=== PATIENT | female | born 1950 | race Caucasian/White ===

== ENCOUNTER 2020-10-05 13:19 | Emergency (ER) | payer MEDICARE ==
[~2020-10-05] VITALS: Ht 160 cm; Wt 113.4 kg
--- NOTE | 2020-10-05 13:33 | NUR ---
ARRIVAL PT ARRIVED TO ED WITH C/O UPPER BACK PAIN X4 DAYS. PT UNSURE OF ANY INJURY AND STATES THAT SHE MAY HAVE PULLED SOMETHING WHILE CLIMBING INTO THE [place]. BEDSIDE MONITORS APPLIED. VITAL SIGNS STABLE. BED IN LOW LOCKED POSITION.
[2020-10-05 13:38] VITALS: BP 151/74
[2020-10-05] MEDS ORDERED: NORCO 7.5MG PO STA ×2 (13:41→13:51)
[2020-10-05] MEDS ORDERED: TORADOL IM STA ×2 (13:41→13:51)
[2020-10-05] MEDS ORDERED: LIDOCAINE 1% VIAL ONE (13:44)
[2020-10-05] MEDS ORDERED: NORCO 7.5MG PO ONE (13:45)
[2020-10-05] MEDS ORDERED: TORADOL ONE (13:45)
[2020-10-05] MEDS ORDERED: KENALOG-40 ONE (13:45)
--- NOTE | 2020-10-05 14:04 | ER.PDOC ---
General Chief Complaint: Back Pain/Injury Stated Complaint: UPPER BACK PAIN Time seen by MD: 14:00 Source: patient Exam Limitations: no limitations History of Present Illness Initial Comments ALSO L SCAPULAR AREA PAIN Timing/Duration: yesterday Severity/Quality: moderate Method of Injury: lifting Modifying Factors: improves with movement Associated Symptoms: muscle spasms Allergies: Coded Allergies: Sulfa (Sulfonamide Antibiotics) (Verified Allergy, Unknown, 10/05/20) Past Medical History Medical History: asthma, diabetes, hypertension Surgical History: cholecystectomy, hysterectomy, tonsillectomy, other Social History Alcohol Use: none Drug Use: none Reviewed Nursing Reviewed: Vital Signs, Abn. Noted Review of Systems All Other Systems: Reviewed and Negative Physical Exam General Appearance: No Apparent Distress, WD/WN HEENT: PERRL/EOMI, Normal ENT Inspection, TMs Normal, Pharynx Normal Neck: Non-Tender, Normal Alignment Cardiovascular/Respiratory: Regular Rate, Rhythm, No M/R/G, Normal Peripheral Pulses, No JVD, Normal Breath Sounds, No Respiratory Distress Gastrointestinal: Normal Bowel Sounds, No Organomegaly, No Pulsatile Mass, Non Tender, Soft Back: Muscle Spasm 1 - TENDER TRIGGER POINT 2 - TENDERNESS Extremities: No Evidence of Injury, Normal Range of Motion, Non-Tender, No Pedal Edema, Pelvis Stable Neuro/Psych: Alert, learning and development consultant nml/symmetrical, mood/effect nml, No Motor/Sensory Deficits, Relexes nml Skin: Normal Color, Warm/Dry Results/Orders Results/Orders Orders - WADE NJ MD Hydrocodone/Acetaminophen (Goodrich 7.5mg) (10/05/20 13:51) Ketorolac Tromethamine (Toradol) (10/05/20 13:51) Ketorolac Tromethamine (Toradol) (10/05/20 13:41) Hydrocodone/Acetaminophen (Goodrich 7.5mg) (10/05/20 13:41) Vital Signs Date Time Temp Pulse Resp B/P (MAP) Pulse Ox O2 Delivery O2 Flow Rate FiO2 10/05/20 13:38 98.0 92 18 96 10/05/20 13:38 98.0 92 18 151/74 (99) 96 Room Air 10/05/20 13:38 98.0 92 18 Administered Medications Medications (Trade) Dose Ordered Sig/Velasquez Route PRN Reason Start Time Stop Time Status Last Admin Dose Admin Acetaminophen/ Hydrocodone Bitart (Goodrich 7.5mg) 1 each STAT STAT PO 10/05/20 13:51 10/05/20 13:53 DC 10/05/20 13:55 1 EACH Ketorolac Tromethamine (Toradol) 30 mg STAT STAT IM 10/05/20 13:51 10/05/20 13:53 DC 10/05/20 13:55 30 MG Progress Progress TRIGGER POINT INJECTED WITH 1 CC KENALOG + 1/2 CC LIDOCAINE ER DEPART Departure Time of Disposition: 14:00 Disposition: 01 HOME, SELF-CARE Impression: Primary Impression: Acute myofascial pain Condition: Improved Referrals: PCP,UNKNOWN (PCP) PRIMARY CARE PROVIDER Duration or Time Spent with Pa: 11M WADE NJ MD Oct 05, 2020 14:04
[2020-10-05 14:07] VITALS: BP 134/68
== END 2020-10-05 14:10 | disposition home or self-care (01) ==
LOC: ER 13:19
DX: M79.18 Myalgia, other site (principal); M54.6 Pain in thoracic spine; E11.9 Type 2 diabetes mellitus without complications; I10 Essential (primary) hypertension; J45.909 Unspecified asthma, uncomplicated; Z79.1 Long term (current) use of non-steroidal anti-inflammatories (NSAID); Z88.2 Allergy status to sulfonamides; Z90.49 Acquired absence of other specified parts of digestive tract; Z90.710 Acquired absence of both cervix and uterus
CPT/HCPCS: 96372; 99283; J1885; J2001; J3301

== ENCOUNTER 2020-10-19 19:38 | Inpatient (IN) | payer MEDICARE ==
[~2020-10-19] VITALS: Ht 162.6 cm; Wt 108.9 kg
--- NOTE | 2020-10-19 19:53 | PCM.EKG ---
[facility] Test Date: 2020-10-19 Test Time: 19:50:59 Pat Name: STU LONDON Department: Room: 313 Gender: F Sack Lifter: SHIRLEY : 1950 Requested By: BRYCE KIRBY Order Number: [id number] Reading MD: Bryce Kirby Measurements Intervals [place] Rate: 85 P: -25 LA: 148 QRS: 0 QRSD: 105 T: 11 QT: 421 QTc: 501 Interpretive Statements Sinus rhythm Minimal ST depression, lateral leads Prolonged QT interval Artifact in lead(s) I,II,III,aVR,aVL,aVF,V1 No previous ECG available for comparison Electronically Signed On 10-21-2020 2:58:11 CDT by Bryce Kirby Please click the below link to view image of tracing.
[2020-10-19 20:12] VITALS: BP 129/84
[2020-10-19] MEDS ORDERED: SOLU-MEDROL IV STA (20:14)
[2020-10-19] MEDS ORDERED: DUO 0.5-3(2.5) MG/3 ML IH STA (20:14)
[2020-10-19] MEDS ORDERED: DUO 0.5-3(2.5) MG/3 ML IH ONE (20:16)
[2020-10-19] MEDS ORDERED: SOLU-MEDROL ONE (20:23)
[2020-10-19 20:24] LABS: BASOPHIL % 0.3 % (0.0-0.2); EOSINOPHIL % 0.2 % (0.0-5.0); LYMPHOCYTES # 1.58 10^3/uL1 (1.0-4.8); LYMPHOCYTES % 15.8 % (24.0-44.0); MEAN CORP HGB 29.3 pg (26-34); MONOCYTES # 0.8 10^3/uL (0.3-0.8); MONOCYTES % 8.1 % (5.0-12.0); NEUTROPHIL # 7.5 10^3/uL (1.8-7.7); NEUTROPHILS % 74.2 % (41.0-85.0); PLATELET COUNT 276 10^3/uL (150-400); RED CELL DISTRIBUTION WIDTH 13.1 % (11.5-14.5)
--- NOTE | 2020-10-19 20:41 | DIREP ---
PROCEDURE:CHEST 1 VIEW COMPARISON:None. INDICATIONS:hypoxia FINDINGS: LUNGS/PLEURA:Multifocal infiltrates in both lungs VASCULATURE:Normal. Unremarkable pulmonary vasculature. CARDIAC:Not well seen MEDIASTINUM:Normal. No visible mass or adenopathy. BONES:Normal. No fracture or visible bony lesion. OTHER:Negative. CONCLUSION:Multifocal pneumonia Dictated by: Praful Bhatti M.D. on 10/19/2020 at 08:38 PM
[2020-10-19 20:43] LABS: ALANINE AMINOTRANSFERASE(ML) 42 U/L (12-78); ALKALINE PHOSPHATASE 70 U/L (50-136); ASPARTATE AMINO TRANSFERASE 42 U/L (0-35); CALCIUM 8.8 mg/dL (8.4-10.5); CARBON DIOXIDE 26.5 mmol/L (20.0-32); GLUCOSE 220 mg/dL (70-110)
[2020-10-19 21:00] VITALS: BP 119/76
[2020-10-19] MEDS ORDERED: LEVAQUIN 150 ML IV STA (21:01)
[2020-10-19] MEDS ORDERED: LEVAQUIN 150 ML IV ONE (21:07)
--- NOTE | 2020-10-19 21:12 | ER.PDOC ---
General Chief Complaint: Dyspnea/Respdistress Stated Complaint: LEFT SHOULDER PAIN/SOB/FEVER TRAVEL OUT OF US: No Time seen by MD: 19:45 Source: patient Exam Limitations: no limitations History of Present Illness Initial Comments This 70-year-old white female comes in complaining of left shoulder pain that is been bothering her for the last 2 weeks. She was in here about a week ago and stated that they gave her some injections in the shoulder which helped for a day or 2 but now is back to her chronic nagging pain. She states the shoulder hurts worse when she sleeps on it or abduction. She denies any known trauma to this. This is not a recurrent issue. When this patient came in, she was found to be hypoxic with a room air sat of 85%. When I asked her about her shortness of breath, she indicates that she has asthma. That has been a lifelong problem for her and that it has been acting up for the last 2 days. She stated she had taken a nebulizer treatment just prior to arrival in the department. She states that normally shr does 4 a day. Over the past couple of days has had to use an extra 1 or 2. She flatly denies having any fevers or chills or any indication that she has any acute infectious process. Timing/Duration: other Severity: moderate Modifying Factors: improves with rest Associated Symptoms: cough, shortness of breath Allergies: Coded Allergies: Sulfa (Sulfonamide Antibiotics) (Verified Allergy, Unknown, 10/05/20) Past Medical History Medical History: asthma, diabetes, hypertension Surgical History: hysterectomy Social History Smoking: non-smoker Alcohol Use: none Drug Use: none Reviewed Nursing Reviewed: Vital Signs, Abn. Noted, Nursing Assessment Review of Systems Respiratory: shortness of breath, wheezing Musculoskeletal: see HPI All Other Systems: Reviewed and Negative Physical Exam General Appearance: No Apparent Distress, WD/WN EENT: eyes nml inspection, nml ENT inspection Neck: Non-Tender, Full Range of Motion, Supple Respiratory: chest non-tender, no respiratory distress, no accessory muscle use, decreased breath sounds, rales, wheezing (Very faint wheezing noted in the upper lobes only) CVS: reg rate & rhythm, no murmur, no gallop, pulses nml Gastrointestinal: Normal Bowel Sounds, No Organomegaly, No Pulsatile Mass, Non Tender Back: Normal Inspection, No CVA Tenderness Extremities: Normal Inspection, No Pedal Edema, Other (Exam of her left shoulder indicates that she has tenderness on abduction. She has tenderness over the supraspinatus and the infraspinatus muscles. Abduction with external rotation is also painful abduction with internal rotation is not made any worse. Abduction does not make her pain worse. Internal rotation and external rotation rotation are nontender.) Neurologic/Psychiatric: braid cutter II-XII NML as Tested, No Motor/Sensory Deficits, Alert, Normal Mood/Affect, Oriented x 3 Skin: Normal Color, Warm/Dry Lymphatic: No Adenopathy Results/Orders Results/Orders Orders - MARYSE HUGHES MD Ekg-Routine (10/19/20 19:42) Ipratropium/Albuterol Sulfate (Duo 0.5-3 (10/19/20 20:16) Ipratropium/Albuterol Sulfate (Duo 0.5-3 (10/19/20 20:14) Methylprednisolone Sod Succ (Solu-Medrol (10/19/20 20:14) Cbc With Auto Diff (10/19/20 20:14) Comprehensive Metabolic Panel (10/19/20 20:14) Probnp B-Type Welt Trimming Machine Operator (10/19/20 20:14) Troponin I (10/19/20 20:14) Xr Chest 1v (10/19/20 20:14) Methylprednisolone Sod Succ (Solu-Medrol (10/19/20 20:23) Azithromycin (Zithromax) (10/19/20 21:30) Levofloxacin 750mg/D5w 100ml (Levaquin) (10/19/20 21:01) Vital Signs Date Time Temp Pulse Resp B/P (MAP) Pulse Ox O2 Delivery O2 Flow Rate FiO2 10/19/20 20:24 83 18 91 10/19/20 20:20 82 18 92 10/19/20 20:12 98.2 83 18 129/84 (99) 79 Room Air 10/19/20 20:12 98.2 83 18 79 10/19/20 20:12 98.2 83 18 Administered Medications Medications (Trade) Dose Ordered Sig/Velasquez Route PRN Reason Start Time Stop Time Status Last Admin Dose Admin Albuterol/ Ipratropium (Duo 0.5-3(2.5) Mg/3 ml) 3 ml STAT STAT IH 10/19/20 20:14 10/19/20 20:18 DC 10/19/20 20:14 3 ML Methylprednisolone Sodium Succinate (Solu-Medrol) 125 mg STAT STAT IV 10/19/20 20:14 10/19/20 20:18 DC 10/19/20 20:27 125 MG Laboratory Tests Test 10/19/20 20:03 White Blood Count 10.0 10^3/uL (4.5-11.0) Red Blood Count 4.68 10^6/uL (4.00-5.20) Hemoglobin 13.7 g/dL (12.0-15.0) Hematocrit 40.4 % (36.0-46.0) Mean Corpuscular Volume 86.3 fL (78-100) Mean Corpuscular Hemoglobin 29.3 pg (26-34) Mean Corpuscular Hemoglobin Concent 33.9 g/dL (33-36.5) Red Cell Distribution Width 13.1 % (11.5-14.5) Platelet Count 276 10^3/uL (150-400) Mean Platelet Volume 10.0 fL (7.8-11.0) Neutrophils (%) (Auto) 74.2 % (41.0-85.0) Lymphocytes (%) (Auto) 15.8 % (24.0-44.0) L Monocytes (%) (Auto) 8.1 % (5.0-12.0) Neutrophils # (Auto) 7.5 10^3/uL (1.8-7.7) Lymphocytes # (Auto) 1.58 10^3/uL1 (1.0-4.8) Monocytes # (Auto) 0.8 10^3/uL (0.3-0.8) Absolute Immature Granulocyte (auto 0.14 10^3 u/L (0-2) Absolute Eosinophils (auto) 0.0 10^3/uL (0.0-0.2) Immature Granulocytes % 1.40 % (0.00-0.50) H Eosinophils % 0.2 % (0.0-5.0) Basophils % 0.3 % (0.0-0.2) H Basophils # 0.0 10^3/uL (0.0-0.1) Sodium Level 137 mmol/L (132-145) Potassium Level 2.9 mmol/L (3.6-5.2) L Chloride Level 98.0 mmol/L (96-109) Carbon Dioxide Level 26.5 mmol/L (20.0-32) Anion Gap 15.4 Blood Urea Nitrogen 12 mg/dL (7-18) Creatinine 0.95 mg/dL (0.59-1.40) Estimated GFR () 70.8 (>/=60) Est GFR (CKD-EPI)(Non-Afr Jordanian) 58.5 (>/=60) BUN/Creatinine Ratio 12.0 Glucose Level 220 mg/dL (70-110) H Calcium Level 8.8 mg/dL (8.4-10.5) Total Bilirubin 0.8 mg/dL (0.2-1.0) Aspartate Amino Transferase (AST) 42 U/L (0-35) H Alanine Aminotransferase (ALT) 42 U/L (12-78) Alkaline Phosphatase 70 U/L (50-136) Troponin I < 0.02 ng/mL (0.00-0.05) Pro-B-Type Natriuretic Peptide 269 pg/mL (0-125) H Total Protein 7.1 g/dL (6.4-8.2) Albumin 3.0 g/dL (3.4-5.0) L Globulin 4.1 Albumin/Globulin Ratio 0.731 Progress Progress Patient's labs are all back and shows a white count normal at 10.0 H&H normal at 13 7 and 40.4 platelets normal at 276,000Unremarkable differential chemistry potassium is low at 2.9 glucose high at 220 albumin is low at 3 AST little bit high at 42 troponin negative at 0.02 and BN P mildly elevated at 269. Chest x- ray comes back showing multifocal infiltrates in both lungs with the left being worse than right this consistent with multifocal pneumonia.Patient was found to be hypoxic when she came in. She actually came in complaining of just muscle skeletal pain in her shoulder. When asked about her shortness of breath, she states she has asthma and has been acting up for the last 2 days. She denies any fevers or chills suspicious of pneumonia.Patient will be admitted to hospitalist for inpatient care. Patient's been given a azithromycin and Levaquin down here in the emergency department ER DEPART Departure Time of Disposition: 21:15 Disposition: 09 ADMITTED INPATIENT Impression: Primary Impression: CAP (community acquired pneumonia) Additional Impressions: Asthma Hypoxia Shoulder pain, left Diabetes Condition: Stable Referrals: PCP,UNKNOWN (PCP) PRIMARY CARE PROVIDER Duration or Time Spent with Pa: 35m Critical Care Note Total Time (mins): 5 Comments Spent an extensive time with the patient both with exam and giving her history. I went back in and check on her multiple times. She would have great saturations as long as she was on 2 L of oxygen. Took her off of the oxygen for a trial and she very rapidly desatted back down into the upper 80s. So, no improvement at all with her albuterol and steroid treatments here in the department. She has pneumonia--community-acquired. Hospitalist was consulted and patient will be admitted to the hospital. Problem Qualifiers MARYSE HUGHES MD Oct 19, 2020 21:12
[2020-10-19] MEDS ORDERED: GABA300C PO (21:19)
[2020-10-19] MEDS ORDERED: LOSA50TA14 PO (21:19)
[2020-10-19] MEDS ORDERED: TRIA1CAP3 PO (21:19)
[2020-10-19] MEDS ORDERED: GABA100C7 PO (21:19)
[2020-10-19] MEDS ORDERED: ALLO300T PO (21:19)
[2020-10-19] MEDS ORDERED: DULO20CA PO (21:19)
[2020-10-19] MEDS ORDERED: FLUT1DIS IH (21:19)
[2020-10-19] MEDS ORDERED: ZITHROMAX 500 MG in NS 250ML 250 ML IV SCH (21:30)
--- NOTE | 2020-10-19 21:34 | PCM.HP ---
History of Present Illness Hx of Present Illness 70-year-old female with past medical history for asthma, diabetes, hypertension, hyperlipidemia who presented to the ER with shoulder pain. Patient does note some shortness of breath, start of a cough. Believed it to be allergies. Patient denies any fevers, loss of taste or smell. Patient was at a family gathering on the day of admission was with family without masks. Past medical history: Diabetes, asthma, hypertension, hyperlipidemia Surgical history: Noncontributory Family history: Diabetes Allergies sulfa: Social history: Patient denies any history of tobacco, alcohol or drug use Review of Systems Constitutional: No: Fever, Chills Respiratory: Cough, Dry, Shortness of breath; No: Wheezing Cardiovascular: No: Chest Pain, Palpitations Gastrointestinal: No: Nausea, Vomiting Genitourinary: No Dysuria, No Frequency Musculoskeletal: shoulder pain Skin: No: Rash, Lesions Neurological: No: Weakness, Numbness Allergies: Coded Allergies: Sulfa (Sulfonamide Antibiotics) (Verified Allergy, Unknown, 10/05/20) Scheduled Allopurinol (Allopurinol), 1 TAB PO DAILY, (Reported) Duloxetine Hcl (Cymbalta), 1 CAP PO BID, (Reported) Fluticasone/Salmeterol (Advair 100-50 Diskus), 1 PUFF IH BID, (Reported) Gabapentin (Neurontin), 1 CAP PO HS, (Reported) Losartan Potassium (Losartan Potassium), 1 TAB PO DAILY, (Reported) Triamterene/Hydrochlorothiazid (Triamterene-Hctz 37.5-25 Mg Cp), 1 CAP PO AM, (Reported) Discontinued Medications Gabapentin (Gabapentin), 1 CAP PO TID, (Reported) Discontinued Reason: No Longer Taking VTE VTE Risk Score VTE Risk: Score 0-1 = Low Risk (Aggressive mobilization; early ambulation; no VTE prophylaxis required) Score 2: Moderate Risk (Intermittent/Pneumatic Compression Device OR Lovenox/Heparin/Coumadin) Score 3-4: High Risk (Intermittent/Pneumatic Compression Device AND Lovenox/Heparin/Coumadin) Score > or =5: Highest Risk (Intermittent/Pneumatic Compression Device AND Lovenox/Heparin/Coumadin) Exam Vital Signs Vital Signs Date Time Temp Pulse Resp B/P (MAP) Pulse Ox O2 Delivery O2 Flow Rate FiO2 3/16/21 20:24 83 18 91 10/19/20 20:12 98.2 129/84 (99) Room Air General Appearance: Alert, Oriented X3, Cooperative, No acute distress HEENT: Atraumatic, PERRLA, EOMI Respiratory: Clear to auscultation, Normal air movement Cardiovascular: Regular rate, Normal S1, Normal S2, No murmurs Abdominal: Normal bowel sounds, Soft, No tenderness Extremities: No clubbing, No cyanosis Skin: No rash, No breakdown Neuro: Normal gait, Normal speech Psych/Mental Status: Mental status NL, Mood NL Assessment/Plan Assessment/Plan Assessment/Plan 70-year-old female with diabetes type 2, asthma, hypertension, hyperlipidemia obesity with BMI of 41 who admitted to hospital for Covid viral pneumonia Patient had x-ray showing multifocal pneumonia Patient test positive for Covid screening Admitted to [facility] COVID-19 Started patient on steroids Start patient on remdesivir Breathing treatments as needed Patient does need supplemental O2 3 L nasal cannula patient does not need oxygen normally at home We will order convalescent plasma Asthma Continue with breathing treatments and steroids Diabetes Sliding scale insulin Hypertension hyperlipidemia Restart home medications DVT prophylaxis Lovenox Disposition: Patient has multiple comorbidities worrisome for COVID-19, patient also on supplemental oxygen. We will closely monitor ordered convalescent plasma in hopes to prevent any further worsening of patient's respiratory symptoms. ARASH SENIOR MD Oct 19, 2020 21:34
[2020-10-19] MEDS ORDERED: REMDESIVIR (EUA) 200 MG in NS 100ML 100 ML IV STA (21:53)
[2020-10-19 22:00] VITALS: BP 124/80
[2020-10-19 23:15] VITALS: BP 122/63
[2020-10-20] VITALS (7 sets, daily range): BP systolic 109–127; BP diastolic 56–68
[2020-10-20] MEDS ORDERED: DUO 0.5-3(2.5) MG/3 ML IH SCH (01:00)
[2020-10-20] MEDS: DUO 0.5-3(2.5) MG/3 ML IH SCH ×3 (01:00→09:00)
[2020-10-20 05:01] LABS: BASOPHIL % 0.3 % (0.0-0.2); LYMPHOCYTES # 0.89 10^3/uL1 (1.0-4.8); MEAN CORP HGB 29.7 pg (26-34); MONOCYTES # 0.2 10^3/uL (0.3-0.8); MONOCYTES % 2.9 % (5.0-12.0); NEUTROPHIL # 5.6 10^3/uL (1.8-7.7); NEUTROPHILS % 82.1 % (41.0-85.0); PLATELET COUNT 258 10^3/uL (150-400); RED CELL DISTRIBUTION WIDTH 13.1 % (11.5-14.5)
[2020-10-20 05:21] LABS: CALCIUM 8.8 mg/dL (8.4-10.5); CARBON DIOXIDE 27.4 mmol/L (20.0-32)
[2020-10-20] MEDS: POTASSIUM CHLORIDE PO SCH (08:07)
[2020-10-20] MEDS: CYMBALTA PO SCH ×2 (08:07→20:24)
[2020-10-20] MEDS: HUMALOG SQ SCH ×4 (08:07→20:35)
[2020-10-20] MEDS: LEVAQUIN PO SCH (08:07)
[2020-10-20] MEDS: COZAAR PO SCH (08:07)
[2020-10-20] MEDS: DEXAMETHASONE 10 MG/ML VIAL IV SCH (08:08)
[2020-10-20] MEDS: MAXZIDE 37.5 MG-25 MG TABLET PO SCH (08:57)
[2020-10-20] MEDS ORDERED: NS 250ML 250 ML IV ONE ×2 (08:58→14:55)
[2020-10-20] MEDS ORDERED: REMDESIVIR (EUA) 200 MG in NS 100ML 100 ML IV ONE (09:00)
[2020-10-20] MEDS ORDERED: COMBIVENT RESPIMAT 20-100 MCG IH ONE (12:24)
[2020-10-20] MEDS ORDERED: COMBIVENT RESPIMAT 20-100 MCG IH SCH (12:30)
--- NOTE | 2020-10-20 12:32 | PRM.PN ---
Subjective Subjective Date: Oct 20, 2020 Time: 12:31 Subjective Patient doing well, no overnight events. Patient still has sense of taste and smell. Patient doing much better with oxygen as well as breathing treatments. VTE VTE Risk Total Score: 3 VTE Risk Score VTE Risk: Score 0-1 = Low Risk (Aggressive mobilization; early ambulation; no VTE prophylaxis required) Score 2: Moderate Risk (Intermittent/Pneumatic Compression Device OR Lovenox/Heparin/Coumadin) Score 3-4: High Risk (Intermittent/Pneumatic Compression Device AND Lovenox/Heparin/Coumadin) Score > or =5: Highest Risk (Intermittent/Pneumatic Compression Device AND Lovenox/Heparin/Coumadin) Review of Systems Constitutional: No: Fever, Chills Respiratory: Cough, Dry, Shortness of breath; No: Wheezing Cardiovascular: No: Chest Pain, Palpitations Gastrointestinal: No: Nausea, Vomiting Genitourinary: No Dysuria, No Frequency Musculoskeletal: shoulder pain Skin: No: Rash, Lesions Neurological: No: Weakness, Numbness Allergies: Coded Allergies: Sulfa (Sulfonamide Antibiotics) (Verified Allergy, Unknown, 10/05/20) Scheduled Allopurinol (Allopurinol), 1 TAB PO DAILY, (Reported) Duloxetine Hcl (Cymbalta), 1 CAP PO BID, (Reported) Fluticasone/Salmeterol (Advair 100-50 Diskus), 1 PUFF IH BID, (Reported) Gabapentin (Neurontin), 1 CAP PO HS, (Reported) Losartan Potassium (Losartan Potassium), 1 TAB PO DAILY, (Reported) Triamterene/Hydrochlorothiazid (Triamterene-Hctz 37.5-25 Mg Cp), 1 CAP PO AM, (Reported) Discontinued Medications Gabapentin (Gabapentin), 1 CAP PO TID, (Reported) Discontinued Reason: No Longer Taking Objective Vitals and I/O Vital Sign - Last 24 Hours 10/20/20 10/20/20 10/20/20 10/20/20 07:57 08:07 08:57 10:34 Temp 98.0 Pulse 71 Resp 16 B/P (MAP) 114/66 (82) 114/66 114/66 Pulse Ox 91 O2 Delivery Nasal Canula Nasal Cannula O2 Flow Rate 3.00 3.00 10/20/20 12:14 Temp 98.0 Pulse 68 Resp 20 B/P (MAP) 121/68 (85) Pulse Ox 91 O2 Delivery Nasal Canula O2 Flow Rate 4.00 Intake and Output 10/20/20 07:00 Intake Total 500 ml Output Total 900 ml Balance -400 ml General: Alert, Oriented X3, Cooperative, No acute distress HEENT: Atraumatic, PERRLA, EOMI Lungs: Clear to auscultation, Normal air movement Heart: Regular rate, Normal S1, Normal S2, No murmurs Abdomen: Normal bowel sounds, Soft, No tenderness Extremities: No clubbing, No cyanosis Neuro: Normal gait, Normal speech Psych/Mental Status: Mental status NL, Mood NL All Results(Lab/Rad) Laboratory Tests Test 10/19/20 20:03 10/19/20 21:10 10/20/20 04:42 10/20/20 05:09 White Blood Count 10.0 10^3/uL 6.9 10^3/uL Red Blood Count 4.68 10^6/uL 4.44 10^6/uL Hemoglobin 13.7 g/dL 13.2 g/dL Hematocrit 40.4 % 38.9 % Mean Corpuscular Volume 86.3 fL 87.6 fL Mean Corpuscular Hemoglobin 29.3 pg 29.7 pg Mean Corpuscular Hemoglobin Concent 33.9 g/dL 33.9 g/dL Red Cell Distribution Width 13.1 % 13.1 % Platelet Count 276 10^3/uL 258 10^3/uL Mean Platelet Volume 10.0 fL 10.3 fL Neutrophils (%) (Auto) 74.2 % 82.1 % Lymphocytes (%) (Auto) 15.8 % 13.0 % Monocytes (%) (Auto) 8.1 % 2.9 % Neutrophils # (Auto) 7.5 10^3/uL 5.6 10^3/uL Lymphocytes # (Auto) 1.58 10^3/uL1 0.89 10^3/uL1 Monocytes # (Auto) 0.8 10^3/uL 0.2 10^3/uL Absolute Immature Granulocyte (auto 0.14 10^3 u/L 0.12 10^3 u/L Absolute Eosinophils (auto) 0.0 10^3/uL 0.0 10^3/uL Immature Granulocytes % 1.40 % 1.70 % Eosinophils % 0.2 % 0.0 % Basophils % 0.3 % 0.3 % Basophils # 0.0 10^3/uL 0.0 10^3/uL D-Dimer 0.63 mg/L Sodium Level 137 mmol/L 137 mmol/L Potassium Level 2.9 mmol/L 3.6 mmol/L Chloride Level 98.0 mmol/L 99.0 mmol/L Carbon Dioxide Level 26.5 mmol/L 27.4 mmol/L Anion Gap 15.4 14.2 Blood Urea Nitrogen 12 mg/dL 14 mg/dL Creatinine 0.95 mg/dL 0.91 mg/dL Estimated GFR () 70.8 74.4 Est GFR (CKD-EPI)(Non-Afr Guamanian) 58.5 61.5 BUN/Creatinine Ratio 12.0 15.0 Glucose Level 220 mg/dL 370 mg/dL Calcium Level 8.8 mg/dL 8.8 mg/dL Total Bilirubin 0.8 mg/dL 0.6 mg/dL Aspartate Amino Transf (AST/SGOT) 42 U/L 34 U/L Alanine Aminotransferase (ALT/SGPT) 42 U/L 41 U/L Alkaline Phosphatase 70 U/L 65 U/L Troponin I < 0.02 ng/mL Pro-B-Type Natriuretic Peptide 269 pg/mL Total Protein 7.1 g/dL 6.8 g/dL Albumin 3.0 g/dL 2.7 g/dL Globulin 4.1 4.1 Albumin/Globulin Ratio 0.731 0.658 SARS-CoV-2 Antigen (Rapid) POSITIVE Bedside Glucose 372 Test 10/20/20 07:52 10/20/20 11:43 Bedside Glucose 329 357 Current Medications Medications (Trade) Dose Ordered Sig/Velasquez Route PRN Reason Start Time Stop Time Status Last Admin Dose Admin Albuterol/ Ipratropium (Duo 0.5-3(2.5) Mg/3 ml) 3 ml STK-MED ONCE IH 10/19/20 20:16 10/19/20 20:16 DC Albuterol/ Ipratropium (Duo 0.5-3(2.5) Mg/3 ml) 3 ml STAT STAT IH 10/19/20 20:14 10/19/20 20:18 DC 10/19/20 20:14 Methylprednisolone Sodium Succinate (Solu-Medrol) 125 mg STAT STAT IV 10/19/20 20:14 10/19/20 20:18 DC 10/19/20 20:27 Methylprednisolone Sodium Succinate (Solu-Medrol) 125 mg STK-MED ONCE .ROUTE 10/19/20 20:23 10/19/20 20:24 DC Azithromycin 500 mg/Sodium Chloride 250 ml @ 175 mls/hr Q24HRS IV 10/19/20 21:30 10/19/20 21:21 DC Levofloxacin/ Dextrose 150 ml @ 100 mls/hr Q24HRS STAT IV 10/19/20 21:01 10/19/20 22:30 DC 10/19/20 21:06 Levofloxacin/ Dextrose 150 ml @ ud STK-MED ONCE IV 10/19/20 21:07 10/19/20 21:07 DC Levofloxacin (Levaquin) 500 mg DAILY PO 10/20/20 09:00 11/19/20 08:59 10/20/20 08:07 Albuterol/ Ipratropium (Duo 0.5-3(2.5) Mg/3 ml) 3 ml RTQ4 IH 10/20/20 01:00 10/19/20 22:15 DC Remdesivir 200 mg/ Sodium Chloride 140 ml @ 120.69 mls/ hr OT STAT IV 10/19/20 21:53 10/20/20 08:28 DC Remdesivir 100 mg/ Sodium Chloride 120 ml @ 111.111 mls/hr Q24HRS IV 10/21/20 09:00 11/20/20 08:59 Albuterol/ Ipratropium (Duo 0.5-3(2.5) Mg/3 ml) 3 ml RTQ4 IH 10/20/20 01:00 11/19/20 00:59 Insulin Human Lispro (Humalog) 0-140 0 Units 141-200... ACHS SQ 10/20/20 07:30 11/19/20 07:29 10/20/20 11:50 Duloxetine HCl (Cymbalta) 20 mg BID PO 10/20/20 09:00 11/19/20 08:59 10/20/20 08:07 Gabapentin (Neurontin) 300 mg HS PO 10/20/20 21:00 11/19/20 20:59 Losartan Potassium (Cozaar) 50 mg DAILY PO 10/20/20 09:00 11/19/20 08:59 10/20/20 08:07 Triamterene/HCTZ (Maxzide 37.5 Mg-25 Mg Tablet) 1 tab DAILY PO 10/20/20 09:00 11/19/20 08:59 10/20/20 08:57 Potassium Chloride (Potassium Chloride) 40 meq DAILY PO 10/20/20 09:00 11/19/20 08:59 10/20/20 08:07 Remdesivir 200 mg/ Sodium Chloride 140 ml @ 100 mls/hr OT ONCE IV 10/20/20 09:00 10/20/20 10:23 DC 10/20/20 08:56 Sodium Chloride 250 ml @ ud STK-MED ONCE IV 10/20/20 08:58 10/20/20 08:58 DC Course Sepsis Screening Results: Posi: POSITIVE Sepsis Qualifier/Stage: SEPSIS RISK Duration or Total Time Spent w: 35m Vitals & review Data Vital Sign - Last 24 Hours 10/20/20 10/20/20 10/20/20 10/20/20 07:57 08:07 08:57 10:34 Temp 98.0 Pulse 71 Resp 16 B/P (MAP) 114/66 (82) 114/66 114/66 Pulse Ox 91 O2 Delivery Nasal Canula Nasal Cannula O2 Flow Rate 3.00 3.00 10/20/20 12:14 Temp 98.0 Pulse 68 Resp 20 B/P (MAP) 121/68 (85) Pulse Ox 91 O2 Delivery Nasal Canula O2 Flow Rate 4.00 Intake and Output 10/20/20 07:00 Intake Total 500 ml Output Total 900 ml Balance -400 ml Laboratory Tests Test 10/19/20 20:03 10/19/20 21:10 10/20/20 04:42 10/20/20 05:09 White Blood Count 10.0 10^3/uL 6.9 10^3/uL Red Blood Count 4.68 10^6/uL 4.44 10^6/uL Hemoglobin 13.7 g/dL 13.2 g/dL Hematocrit 40.4 % 38.9 % Mean Corpuscular Volume 86.3 fL 87.6 fL Mean Corpuscular Hemoglobin 29.3 pg 29.7 pg Mean Corpuscular Hemoglobin Concent 33.9 g/dL 33.9 g/dL Red Cell Distribution Width 13.1 % 13.1 % Platelet Count 276 10^3/uL 258 10^3/uL Mean Platelet Volume 10.0 fL 10.3 fL Neutrophils (%) (Auto) 74.2 % 82.1 % Lymphocytes (%) (Auto) 15.8 % 13.0 % Monocytes (%) (Auto) 8.1 % 2.9 % Neutrophils # (Auto) 7.5 10^3/uL 5.6 10^3/uL Lymphocytes # (Auto) 1.58 10^3/uL1 0.89 10^3/uL1 Monocytes # (Auto) 0.8 10^3/uL 0.2 10^3/uL Absolute Immature Granulocyte (auto 0.14 10^3 u/L 0.12 10^3 u/L Absolute Eosinophils (auto) 0.0 10^3/uL 0.0 10^3/uL Immature Granulocytes % 1.40 % 1.70 % Eosinophils % 0.2 % 0.0 % Basophils % 0.3 % 0.3 % Basophils # 0.0 10^3/uL 0.0 10^3/uL D-Dimer 0.63 mg/L Sodium Level 137 mmol/L 137 mmol/L Potassium Level 2.9 mmol/L 3.6 mmol/L Chloride Level 98.0 mmol/L 99.0 mmol/L Carbon Dioxide Level 26.5 mmol/L 27.4 mmol/L Anion Gap 15.4 14.2 Blood Urea Nitrogen 12 mg/dL 14 mg/dL Creatinine 0.95 mg/dL 0.91 mg/dL Estimated GFR () 70.8 74.4 Est GFR (CKD-EPI)(Non-Afr Guamanian) 58.5 61.5 BUN/Creatinine Ratio 12.0 15.0 Glucose Level 220 mg/dL 370 mg/dL Calcium Level 8.8 mg/dL 8.8 mg/dL Total Bilirubin 0.8 mg/dL 0.6 mg/dL Aspartate Amino Transf (AST/SGOT) 42 U/L 34 U/L Alanine Aminotransferase (ALT/SGPT) 42 U/L 41 U/L Alkaline Phosphatase 70 U/L 65 U/L Troponin I < 0.02 ng/mL Pro-B-Type Natriuretic Peptide 269 pg/mL Total Protein 7.1 g/dL 6.8 g/dL Albumin 3.0 g/dL 2.7 g/dL Globulin 4.1 4.1 Albumin/Globulin Ratio 0.731 0.658 SARS-CoV-2 Antigen (Rapid) POSITIVE Bedside Glucose 372 Test 10/20/20 07:52 10/20/20 11:43 Bedside Glucose 329 357 Current Medications Medications (Trade) Dose Ordered Sig/Velasquez PRN Reason Start Time Stop Time Status Last Admin Albuterol/ Ipratropium (Duo 0.5-3(2.5) Mg/3 ml) 3 ml RTQ4 10/20/20 01:00 11/19/20 00:59 Duloxetine HCl (Cymbalta) 20 mg BID 10/20/20 09:00 11/19/20 08:59 10/20/20 08:07 Gabapentin (Neurontin) 300 mg HS 10/20/20 21:00 11/19/20 20:59 Insulin Human Lispro (Humalog) 0-140 0 Units 141-200... ACHS 10/20/20 07:30 11/19/20 07:29 10/20/20 11:50 Levofloxacin (Levaquin) 500 mg DAILY 10/20/20 09:00 11/19/20 08:59 10/20/20 08:07 Losartan Potassium (Cozaar) 50 mg DAILY 10/20/20 09:00 11/19/20 08:59 10/20/20 08:07 Potassium Chloride (Potassium Chloride) 40 meq DAILY 10/20/20 09:00 11/19/20 08:59 10/20/20 08:07 Remdesivir 100 mg/ Sodium Chloride 120 ml @ 111.111 mls/hr Q24HRS 10/21/20 09:00 11/20/20 08:59 Triamterene/HCTZ (Maxzide 37.5 Mg-25 Mg Tablet) 1 tab DAILY 10/20/20 09:00 11/19/20 08:59 10/20/20 08:57 LEVEL 1 SEPSIS INFECTION CRITE: ABX Therapy, Cough/Shortness of Breath, Flu- Pneumonia LEVEL 2-SIRS (LIST ALL THAT AP: None/Not assessed Cardiovascular Evidence: Not Assessed or None Hematologic Evidence: None/Not assessed Hepatic Evidence: None/Not assessed Metabolic Evidence: None/Not assessed Neurological Evidence: None/Not assessed Respiratory Evidence: Need for O2 to keep>90% Renal Evidence: None/Not assessed O2 Sat by Pulse Oximetry: 91 Oxygen Flow Rate: 4.00 Assessment/Plan Assessment/Plan Assessment/Plan 70-year-old female with diabetes type 2, asthma, hypertension, hyperlipidemia obesity with BMI of 41 who admitted to hospital for Covid viral pneumonia Patient had x-ray showing multifocal pneumonia Patient test positive for Covid screening Admitted to [facility] COVID-19 Started patient on steroids Start patient on remdesivir Breathing treatments as needed Patient does need supplemental O2 3 L nasal cannula patient does not need oxygen normally at home We will order convalescent plasma Asthma Continue with breathing treatments and steroids Diabetes Sliding scale insulin Hypertension hyperlipidemia Restart home medications DVT prophylaxis Lovenox Disposition: Patient has multiple comorbidities worrisome for COVID-19, patient also on supplemental oxygen. We will closely monitor ordered convalescent plasma in hopes to prevent any further worsening of patient's respiratory symptoms. Plan 70-year-old female with diabetes type 2, asthma, hypertension, hyperlipidemia obesity with BMI of 41 who admitted to hospital for Covid viral pneumonia Patient had x-ray showing multifocal pneumonia Patient test positive for Covid screening Admitted to [facility] COVID-19 Started patient on steroids Start patient on remdesivir Breathing treatments as needed Patient does need supplemental O2 3 L nasal cannula patient does not need oxygen normally at home We will order convalescent plasma Asthma Continue with breathing treatments and steroids Diabetes Sliding scale insulin Hypertension hyperlipidemia Restart home medications DVT prophylaxis Lovenox Disposition: Patient has multiple comorbidities worrisome for COVID-19, patient also on supplemental oxygen. We will closely monitor ordered convalescent plasma in hopes to prevent any further worsening of patient's respiratory symptoms. ARASH SENIOR MD Oct 20, 2020 12:32
[2020-10-20] MEDS: LOVENOX SQ SCH ×3 (13:22→20:29)
[2020-10-20] MEDS: COMBIVENT RESPIMAT 20-100 MCG IH SCH ×2 (18:32→22:09)
[2020-10-20] MEDS ORDERED: NEURONTIN ONE (19:56)
[2020-10-20] MEDS: NEURONTIN PO SCH (20:24)
[2020-10-21] VITALS (7 sets, daily range): BP systolic 116–135; BP diastolic 62–72
[2020-10-21] MEDS: COMBIVENT RESPIMAT 20-100 MCG IH SCH ×2 (01:20→05:30)
[2020-10-21 04:55] LABS: BASOPHIL % 0.1 % (0.0-0.2); EOSINOPHIL % 0.1 % (0.0-5.0); LYMPHOCYTES # 2.25 10^3/uL1 (1.0-4.8); LYMPHOCYTES % 17.5 % (24.0-44.0); MEAN CORP HGB 29.9 pg (26-34); MONOCYTES # 1.2 10^3/uL (0.3-0.8); MONOCYTES % 9.3 % (5.0-12.0); NEUTROPHIL # 9.1 10^3/uL (1.8-7.7); NEUTROPHILS % 70.7 % (41.0-85.0); PLATELET COUNT 304 10^3/uL (150-400); RED CELL DISTRIBUTION WIDTH 13.1 % (11.5-14.5)
[2020-10-21 05:09] LABS: CALCIUM 9.1 mg/dL (8.4-10.5); CARBON DIOXIDE 27.4 mmol/L (20.0-32)
[2020-10-21] MEDS: HUMALOG SQ SCH ×4 (07:34→21:08)
[2020-10-21] MEDS: CYMBALTA PO SCH ×2 (08:25→20:50)
[2020-10-21] MEDS: POTASSIUM CHLORIDE PO SCH (08:25)
[2020-10-21] MEDS: DEXAMETHASONE 10 MG/ML VIAL IV SCH (08:25)
[2020-10-21] MEDS: LEVAQUIN PO SCH (08:25)
[2020-10-21] MEDS: MAXZIDE 37.5 MG-25 MG TABLET PO SCH (08:25)
[2020-10-21] MEDS: COZAAR PO SCH (08:25)
[2020-10-21] MEDS ORDERED: REMDESIVIR (EUA) 100 MG in NS 100ML 100 ML IV SCH (09:00)
--- NOTE | 2020-10-21 11:23 | PRM.PN ---
Subjective Subjective Date: Oct 21, 2020 Time: 11:21 Subjective Patient doing well, no overnight events. Patient still has sense of taste and smell. Patient doing much better with oxygen as well as breathing treatments.Patient received convalescent plasma yesterday tolerated well. Patient did have to increase oxygen up to 4 L due to the setting 86% however able to wean back down to 3-1/2 L nasal cannula. VTE VTE Risk Total Score: 3 VTE Risk Score VTE Risk: Score 0-1 = Low Risk (Aggressive mobilization; early ambulation; no VTE prophylaxis required) Score 2: Moderate Risk (Intermittent/Pneumatic Compression Device OR Lovenox/Heparin/Coumadin) Score 3-4: High Risk (Intermittent/Pneumatic Compression Device AND Lovenox/Heparin/Coumadin) Score > or =5: Highest Risk (Intermittent/Pneumatic Compression Device AND Lovenox/Heparin/Coumadin) Review of Systems Constitutional: No: Fever, Chills Respiratory: Cough, Dry, Shortness of breath; No: Wheezing Cardiovascular: No: Chest Pain, Palpitations Gastrointestinal: No: Nausea, Vomiting Genitourinary: No Dysuria, No Frequency Musculoskeletal: shoulder pain Skin: No: Rash, Lesions Neurological: No: Weakness, Numbness Allergies: Coded Allergies: Sulfa (Sulfonamide Antibiotics) (Verified Allergy, Unknown, 10/05/20) Scheduled Allopurinol (Allopurinol), 1 TAB PO DAILY, (Reported) Duloxetine Hcl (Cymbalta), 1 CAP PO BID, (Reported) Fluticasone/Salmeterol (Advair 100-50 Diskus), 1 PUFF IH BID, (Reported) Gabapentin (Neurontin), 1 CAP PO HS, (Reported) Losartan Potassium (Losartan Potassium), 1 TAB PO DAILY, (Reported) Triamterene/Hydrochlorothiazid (Triamterene-Hctz 37.5-25 Mg Cp), 1 CAP PO AM, (Reported) Discontinued Medications Gabapentin (Gabapentin), 1 CAP PO TID, (Reported) Discontinued Reason: No Longer Taking Objective Vitals and I/O Vital Sign - Last 24 Hours 10/21/20 10/21/20 10/21/20 10/21/20 07:11 08:25 08:25 08:59 Temp 97.7 Pulse 68 71 Resp 16 20 B/P (MAP) 129/65 (86) 129/65 129/65 Pulse Ox 96 94 O2 Delivery Nasal Canula Nasal Cannula O2 Flow Rate 3.50 2.00 FiO2 28 10/21/20 10/21/20 08:59 09:08 Pulse 71 Resp 18 Pulse Ox 94 O2 Delivery Nasal Cannula O2 Flow Rate 3.50 General: Alert, Oriented X3, Cooperative, No acute distress HEENT: Atraumatic, PERRLA, EOMI Lungs: Clear to auscultation, Normal air movement, Other (Noted wheezing minor mid lung cameron left side) Heart: Regular rate, Normal S1, Normal S2, No murmurs Abdomen: Normal bowel sounds, Soft, No tenderness Extremities: No clubbing, No cyanosis Neuro: Normal gait, Normal speech Psych/Mental Status: Mental status NL, Mood NL All Results(Lab/Rad) Laboratory Tests Test 10/19/20 20:03 10/19/20 21:10 10/20/20 04:42 10/20/20 05:09 White Blood Count 10.0 10^3/uL 6.9 10^3/uL Red Blood Count 4.68 10^6/uL 4.44 10^6/uL Hemoglobin 13.7 g/dL 13.2 g/dL Hematocrit 40.4 % 38.9 % Mean Corpuscular Volume 86.3 fL 87.6 fL Mean Corpuscular Hemoglobin 29.3 pg 29.7 pg Mean Corpuscular Hemoglobin Concent 33.9 g/dL 33.9 g/dL Red Cell Distribution Width 13.1 % 13.1 % Platelet Count 276 10^3/uL 258 10^3/uL Mean Platelet Volume 10.0 fL 10.3 fL Neutrophils (%) (Auto) 74.2 % 82.1 % Lymphocytes (%) (Auto) 15.8 % 13.0 % Monocytes (%) (Auto) 8.1 % 2.9 % Neutrophils # (Auto) 7.5 10^3/uL 5.6 10^3/uL Lymphocytes # (Auto) 1.58 10^3/uL1 0.89 10^3/uL1 Monocytes # (Auto) 0.8 10^3/uL 0.2 10^3/uL Absolute Immature Granulocyte (auto 0.14 10^3 u/L 0.12 10^3 u/L Absolute Eosinophils (auto) 0.0 10^3/uL 0.0 10^3/uL Immature Granulocytes % 1.40 % 1.70 % Eosinophils % 0.2 % 0.0 % Basophils % 0.3 % 0.3 % Basophils # 0.0 10^3/uL 0.0 10^3/uL D-Dimer 0.63 mg/L Sodium Level 137 mmol/L 137 mmol/L Potassium Level 2.9 mmol/L 3.6 mmol/L Chloride Level 98.0 mmol/L 99.0 mmol/L Carbon Dioxide Level 26.5 mmol/L 27.4 mmol/L Anion Gap 15.4 14.2 Blood Urea Nitrogen 12 mg/dL 14 mg/dL Creatinine 0.95 mg/dL 0.91 mg/dL Estimated GFR () 70.8 74.4 Est GFR (CKD-EPI)(Non-Afr Zimbabwean) 58.5 61.5 BUN/Creatinine Ratio 12.0 15.0 Glucose Level 220 mg/dL 370 mg/dL Calcium Level 8.8 mg/dL 8.8 mg/dL Total Bilirubin 0.8 mg/dL 0.6 mg/dL Aspartate Amino Transf (AST/SGOT) 42 U/L 34 U/L Alanine Aminotransferase (ALT/SGPT) 42 U/L 41 U/L Alkaline Phosphatase 70 U/L 65 U/L Troponin I < 0.02 ng/mL Pro-B-Type Natriuretic Peptide 269 pg/mL Total Protein 7.1 g/dL 6.8 g/dL Albumin 3.0 g/dL 2.7 g/dL Globulin 4.1 4.1 Albumin/Globulin Ratio 0.731 0.658 SARS-CoV-2 Antigen (Rapid) POSITIVE Bedside Glucose 372 Test 10/20/20 07:52 10/20/20 11:43 Bedside Glucose 329 357 Current Medications Medications (Trade) Dose Ordered Sig/Velasquez Route PRN Reason Start Time Stop Time Status Last Admin Dose Admin Albuterol/ Ipratropium (Duo 0.5-3(2.5) Mg/3 ml) 3 ml STK-MED ONCE 10/19/20 20:16 10/19/20 20:16 DC Albuterol/ Ipratropium (Duo 0.5-3(2.5) Mg/3 ml) 3 ml STAT STAT IH 10/19/20 20:14 10/19/20 20:18 DC 10/19/20 20:14 Methylprednisolone Sodium Succinate (Solu-Medrol) 125 mg STAT STAT IV 10/19/20 20:14 10/19/20 20:18 DC 10/19/20 20:27 Methylprednisolone Sodium Succinate (Solu-Medrol) 125 mg STK-MED ONCE .ROUTE 10/19/20 20:23 10/19/20 20:24 DC Azithromycin 500 mg/Sodium Chloride 250 ml @ 175 mls/hr Q24HRS IV 10/19/20 21:30 10/19/20 21:21 DC Levofloxacin/ Dextrose 150 ml @ 100 mls/hr Q24HRS STAT IV 10/19/20 21:01 10/19/20 22:30 DC 10/19/20 21:06 Levofloxacin/ Dextrose 150 ml @ ud STK-MED ONCE IV 10/19/20 21:07 10/19/20 21:07 DC Levofloxacin (Levaquin) 500 mg DAILY PO 10/20/20 09:00 11/19/20 08:59 10/20/20 08:07 Albuterol/ Ipratropium (Duo 0.5-3(2.5) Mg/3 ml) 3 ml RTQ4 IH 10/20/20 01:00 10/19/20 22:15 DC Remdesivir 200 mg/ Sodium Chloride 140 ml @ 120.69 mls/ hr OT STAT IV 10/19/20 21:53 10/20/20 08:28 DC Remdesivir 100 mg/ Sodium Chloride 120 ml @ 111.111 mls/hr Q24HRS IV 10/21/20 09:00 11/20/20 08:59 Albuterol/ Ipratropium (Duo 0.5-3(2.5) Mg/3 ml) 3 ml RTQ4 IH 10/20/20 01:00 11/19/20 00:59 Insulin Human Lispro (Humalog) 0-140 0 Units 141-200... ACHS SQ 10/20/20 07:30 11/19/20 07:29 10/20/20 11:50 Duloxetine HCl (Cymbalta) 20 mg BID PO 10/20/20 09:00 11/19/20 08:59 10/20/20 08:07 Gabapentin (Neurontin) 300 mg HS PO 10/20/20 21:00 11/19/20 20:59 Losartan Potassium (Cozaar) 50 mg DAILY PO 10/20/20 09:00 11/19/20 08:59 10/20/20 08:07 Triamterene/HCTZ (Maxzide 37.5 Mg-25 Mg Tablet) 1 tab DAILY PO 10/20/20 09:00 11/19/20 08:59 10/20/20 08:57 Potassium Chloride (Potassium Chloride) 40 meq DAILY PO 10/20/20 09:00 11/19/20 08:59 10/20/20 08:07 Remdesivir 200 mg/ Sodium Chloride 140 ml @ 100 mls/hr OT ONCE IV 10/20/20 09:00 10/20/20 10:23 DC 10/20/20 08:56 Sodium Chloride 250 ml @ ud STK-MED ONCE IV 10/20/20 08:58 10/20/20 08:58 DC Course Sepsis Screening Results: Posi: POSITIVE Sepsis Qualifier/Stage: SEPSIS RISK Duration or Total Time Spent w: 35m Vitals & review Data Vital Sign - Last 24 Hours 10/20/20 10/20/20 10/20/20 10/20/20 07:57 08:07 08:57 10:34 Temp 98.0 Pulse 71 Resp 16 B/P (MAP) 114/66 (82) 114/66 114/66 Pulse Ox 91 O2 Delivery Nasal Canula Nasal Cannula O2 Flow Rate 3.00 3.00 10/20/20 12:14 Temp 98.0 Pulse 68 Resp 20 B/P (MAP) 121/68 (85) Pulse Ox 91 O2 Delivery Nasal Canula O2 Flow Rate 4.00 Intake and Output 10/20/20 07:00 Intake Total 500 ml Output Total 900 ml Balance -400 ml Laboratory Tests Test 10/19/20 20:03 10/19/20 21:10 10/20/20 04:42 10/20/20 05:09 White Blood Count 10.0 10^3/uL 6.9 10^3/uL Red Blood Count 4.68 10^6/uL 4.44 10^6/uL Hemoglobin 13.7 g/dL 13.2 g/dL Hematocrit 40.4 % 38.9 % Mean Corpuscular Volume 86.3 fL 87.6 fL Mean Corpuscular Hemoglobin 29.3 pg 29.7 pg Mean Corpuscular Hemoglobin Concent 33.9 g/dL 33.9 g/dL Red Cell Distribution Width 13.1 % 13.1 % Platelet Count 276 10^3/uL 258 10^3/uL Mean Platelet Volume 10.0 fL 10.3 fL Neutrophils (%) (Auto) 74.2 % 82.1 % Lymphocytes (%) (Auto) 15.8 % 13.0 % Monocytes (%) (Auto) 8.1 % 2.9 % Neutrophils # (Auto) 7.5 10^3/uL 5.6 10^3/uL Lymphocytes # (Auto) 1.58 10^3/uL1 0.89 10^3/uL1 Monocytes # (Auto) 0.8 10^3/uL 0.2 10^3/uL Absolute Immature Granulocyte (auto 0.14 10^3 u/L 0.12 10^3 u/L Absolute Eosinophils (auto) 0.0 10^3/uL 0.0 10^3/uL Immature Granulocytes % 1.40 % 1.70 % Eosinophils % 0.2 % 0.0 % Basophils % 0.3 % 0.3 % Basophils # 0.0 10^3/uL 0.0 10^3/uL D-Dimer 0.63 mg/L Sodium Level 137 mmol/L 137 mmol/L Potassium Level 2.9 mmol/L 3.6 mmol/L Chloride Level 98.0 mmol/L 99.0 mmol/L Carbon Dioxide Level 26.5 mmol/L 27.4 mmol/L Anion Gap 15.4 14.2 Blood Urea Nitrogen 12 mg/dL 14 mg/dL Creatinine 0.95 mg/dL 0.91 mg/dL Estimated GFR () 70.8 74.4 Est GFR (CKD-EPI)(Non-Afr Zimbabwean) 58.5 61.5 BUN/Creatinine Ratio 12.0 15.0 Glucose Level 220 mg/dL 370 mg/dL Calcium Level 8.8 mg/dL 8.8 mg/dL Total Bilirubin 0.8 mg/dL 0.6 mg/dL Aspartate Amino Transf (AST/SGOT) 42 U/L 34 U/L Alanine Aminotransferase (ALT/SGPT) 42 U/L 41 U/L Alkaline Phosphatase 70 U/L 65 U/L Troponin I < 0.02 ng/mL Pro-B-Type Natriuretic Peptide 269 pg/mL Total Protein 7.1 g/dL 6.8 g/dL Albumin 3.0 g/dL 2.7 g/dL Globulin 4.1 4.1 Albumin/Globulin Ratio 0.731 0.658 SARS-CoV-2 Antigen (Rapid) POSITIVE Bedside Glucose 372 Test 10/20/20 07:52 10/20/20 11:43 Bedside Glucose 329 357 Current Medications Medications (Trade) Dose Ordered Sig/Velasquez PRN Reason Start Time Stop Time Status Last Admin Albuterol/ Ipratropium (Duo 0.5-3(2.5) Mg/3 ml) 3 ml RTQ4 10/20/20 01:00 11/19/20 00:59 Duloxetine HCl (Cymbalta) 20 mg BID 10/20/20 09:00 11/19/20 08:59 10/20/20 08:07 Gabapentin (Neurontin) 300 mg HS 10/20/20 21:00 11/19/20 20:59 Insulin Human Lispro (Humalog) 0-140 0 Units 141-200... ACHS 10/20/20 07:30 11/19/20 07:29 10/20/20 11:50 Levofloxacin (Levaquin) 500 mg DAILY 10/20/20 09:00 11/19/20 08:59 10/20/20 08:07 Losartan Potassium (Cozaar) 50 mg DAILY 10/20/20 09:00 11/19/20 08:59 10/20/20 08:07 Potassium Chloride (Potassium Chloride) 40 meq DAILY 10/20/20 09:00 11/19/20 08:59 10/20/20 08:07 Remdesivir 100 mg/ Sodium Chloride 120 ml @ 111.111 mls/hr Q24HRS 10/21/20 09:00 11/20/20 08:59 Triamterene/HCTZ (Maxzide 37.5 Mg-25 Mg Tablet) 1 tab DAILY 10/20/20 09:00 11/19/20 08:59 10/20/20 08:57 LEVEL 1 SEPSIS INFECTION CRITE: ABX Therapy, Cough/Shortness of Breath, Flu- Pneumonia LEVEL 2-SIRS (LIST ALL THAT AP: [id number] Cardiovascular Evidence: Not Assessed or None Hematologic Evidence: None/Not assessed Hepatic Evidence: None/Not assessed Metabolic Evidence: None/Not assessed Neurological Evidence: None/Not assessed Respiratory Evidence: Need for O2 to keep>90% Renal Evidence: None/Not assessed O2 Sat by Pulse Oximetry: 94 Oxygen Flow Rate: 3.50 Assessment/Plan Assessment/Plan Assessment/Plan 70-year-old female with diabetes type 2, asthma, hypertension, hyperlipidemia obesity with BMI of 41 who admitted to hospital for Covid viral pneumonia Patient had x-ray showing multifocal pneumonia Patient test positive for Covid screening Admitted to [facility] COVID-19 Started patient on steroids Start patient on remdesivir Breathing treatments as needed Patient does need supplemental O2 3.5 L nasal cannula patient does not need oxygen normally at home Patient received 1 unit of convalescent plasma Asthma Continue with breathing treatments and steroids Diabetes Sliding scale insulin Hypertension hyperlipidemia Restart home medications DVT prophylaxis Lovenox Disposition: Patient has multiple comorbidities worrisome for COVID-19, patient also on supplemental oxygen. We will closely monitor, received convalescent plasma in hopes to prevent any further worsening of patient's respiratory symptoms. Patient stable but still requiring O2 when patient can be weaned down and is stable on 2 L okay O2 will consider discharge. Plan 6 ARASH SENIOR MD Oct 21, 2020 11:23
[2020-10-21] MEDS: REMDESIVIR (EUA) 100 MG in NS 100ML 100 ML IV SCH (14:44)
[2020-10-21] MEDS ORDERED: NS 250ML 250 ML IV ONE (14:46)
[2020-10-21] MEDS ORDERED: NS 100ML 100 ML IV ONE (14:54)
[2020-10-21] MEDS: COMBIVENT RESPIMAT 20-100 MCG IH PRN (16:35)
[2020-10-21] MEDS: NEURONTIN PO SCH (20:50)
[2020-10-21] MEDS: LOVENOX SQ SCH (20:54)
[2020-10-22 04:27] VITALS: BP 132/67
[2020-10-22 05:12] LABS: BASOPHIL % 0.2 % (0.0-0.2); EOSINOPHIL % 0.2 % (0.0-5.0); LYMPHOCYTES # 2.62 10^3/uL1 (1.0-4.8); LYMPHOCYTES % 20.8 % (24.0-44.0); MEAN CORP HGB 29.9 pg (26-34); MONOCYTES # 1.1 10^3/uL (0.3-0.8); MONOCYTES % 8.5 % (5.0-12.0); NEUTROPHIL # 8.6 10^3/uL (1.8-7.7); NEUTROPHILS % 67.9 % (41.0-85.0); PLATELET COUNT 319 10^3/uL (150-400); RED CELL DISTRIBUTION WIDTH 13.1 % (11.5-14.5)
[2020-10-22 05:29] LABS: CARBON DIOXIDE 25.9 mmol/L (20.0-32)
[2020-10-22 07:15] VITALS: BP 131/72
[2020-10-22] MEDS: HUMALOG SQ SCH ×4 (07:16→21:48)
[2020-10-22] MEDS: POTASSIUM CHLORIDE PO SCH (08:20)
[2020-10-22] MEDS: DEXAMETHASONE 10 MG/ML VIAL IV SCH (08:20)
[2020-10-22] MEDS: LEVAQUIN PO SCH (08:21)
[2020-10-22] MEDS: COMBIVENT RESPIMAT 20-100 MCG IH PRN (08:21)
[2020-10-22] MEDS: MAXZIDE 37.5 MG-25 MG TABLET PO SCH (08:21)
[2020-10-22] MEDS: CYMBALTA PO SCH ×2 (08:21→21:09)
[2020-10-22] MEDS: COZAAR PO SCH (08:21)
[2020-10-22 11:01] VITALS: BP 123/66
--- NOTE | 2020-10-22 11:45 | PRM.PN ---
Subjective Subjective Date: Oct 22, 2020 Time: 11:43 Subjective Patient doing well, no overnight events. Patient still has sense of taste and smell. Patient doing much better with oxygen as well as breathing treatments.Patient received convalescent plasma yesterday tolerated well. Patient doing well was able to try to wean down to room air, however did have desats down to 88% on room air when trying to walk. Otherwise patient doing much better. VTE VTE Risk Total Score: 3 VTE Risk Score VTE Risk: Score 0-1 = Low Risk (Aggressive mobilization; early ambulation; no VTE prophylaxis required) Score 2: Moderate Risk (Intermittent/Pneumatic Compression Device OR Lovenox/Heparin/Coumadin) Score 3-4: High Risk (Intermittent/Pneumatic Compression Device AND Lovenox/Heparin/Coumadin) Score > or =5: Highest Risk (Intermittent/Pneumatic Compression Device AND Lovenox/Heparin/Coumadin) Review of Systems Constitutional: No: Fever, Chills Respiratory: Cough, Dry, Shortness of breath; No: Wheezing Cardiovascular: No: Chest Pain, Palpitations Gastrointestinal: No: Nausea, Vomiting Genitourinary: No Dysuria, No Frequency Musculoskeletal: shoulder pain Skin: No: Rash, Lesions Neurological: No: Weakness, Numbness Allergies: Coded Allergies: Sulfa (Sulfonamide Antibiotics) (Verified Allergy, Unknown, 10/05/20) Scheduled Allopurinol (Allopurinol), 1 TAB PO DAILY, (Reported) Duloxetine Hcl (Cymbalta), 1 CAP PO BID, (Reported) Fluticasone/Salmeterol (Advair 100-50 Diskus), 1 PUFF IH BID, (Reported) Gabapentin (Neurontin), 1 CAP PO HS, (Reported) Losartan Potassium (Losartan Potassium), 1 TAB PO DAILY, (Reported) Triamterene/Hydrochlorothiazid (Triamterene-Hctz 37.5-25 Mg Cp), 1 CAP PO AM, (Reported) Discontinued Medications Gabapentin (Gabapentin), 1 CAP PO TID, (Reported) Discontinued Reason: No Longer Taking Objective Vitals and I/O Vital Sign - Last 24 Hours 10/22/20 10/22/20 10/22/20 10/22/20 07:15 08:07 08:21 08:21 Temp 98.0 Pulse 77 Resp 16 B/P (MAP) 131/72 (91) 131/72 131/72 Pulse Ox 96 O2 Delivery Nasal Canula Nasal Cannula O2 Flow Rate 1.00 1.00 10/22/20 10/22/20 10/22/20 08:22 08:23 11:01 Temp 97.4 Pulse 89 89 66 Resp 16 18 16 B/P (MAP) 123/66 (85) Pulse Ox 90 90 92 O2 Delivery Nasal Cannula Nasal Canula O2 Flow Rate 1.00 1.00 General: Alert, Oriented X3, Cooperative, No acute distress HEENT: Atraumatic, PERRLA, EOMI Lungs: Clear to auscultation, Normal air movement, Other (Noted wheezing minor mid lung cameron left side) Heart: Regular rate, Normal S1, Normal S2, No murmurs Abdomen: Normal bowel sounds, Soft, No tenderness Extremities: No clubbing, No cyanosis Neuro: Normal gait, Normal speech Psych/Mental Status: Mental status NL, Mood NL All Results(Lab/Rad) Laboratory Tests Test 10/19/20 20:03 10/19/20 21:10 10/20/20 04:42 10/20/20 05:09 White Blood Count 10.0 10^3/uL 6.9 10^3/uL Red Blood Count 4.68 10^6/uL 4.44 10^6/uL Hemoglobin 13.7 g/dL 13.2 g/dL Hematocrit 40.4 % 38.9 % Mean Corpuscular Volume 86.3 fL 87.6 fL Mean Corpuscular Hemoglobin 29.3 pg 29.7 pg Mean Corpuscular Hemoglobin Concent 33.9 g/dL 33.9 g/dL Red Cell Distribution Width 13.1 % 13.1 % Platelet Count 276 10^3/uL 258 10^3/uL Mean Platelet Volume 10.0 fL 10.3 fL Neutrophils (%) (Auto) 74.2 % 82.1 % Lymphocytes (%) (Auto) 15.8 % 13.0 % Monocytes (%) (Auto) 8.1 % 2.9 % Neutrophils # (Auto) 7.5 10^3/uL 5.6 10^3/uL Lymphocytes # (Auto) 1.58 10^3/uL1 0.89 10^3/uL1 Monocytes # (Auto) 0.8 10^3/uL 0.2 10^3/uL Absolute Immature Granulocyte (auto 0.14 10^3 u/L 0.12 10^3 u/L Absolute Eosinophils (auto) 0.0 10^3/uL 0.0 10^3/uL Immature Granulocytes % 1.40 % 1.70 % Eosinophils % 0.2 % 0.0 % Basophils % 0.3 % 0.3 % Basophils # 0.0 10^3/uL 0.0 10^3/uL D-Dimer 0.63 mg/L Sodium Level 137 mmol/L 137 mmol/L Potassium Level 2.9 mmol/L 3.6 mmol/L Chloride Level 98.0 mmol/L 99.0 mmol/L Carbon Dioxide Level 26.5 mmol/L 27.4 mmol/L Anion Gap 15.4 14.2 Blood Urea Nitrogen 12 mg/dL 14 mg/dL Creatinine 0.95 mg/dL 0.91 mg/dL Estimated GFR () 70.8 74.4 Est GFR (CKD-EPI)(Non-Afr Mexican) 58.5 61.5 BUN/Creatinine Ratio 12.0 15.0 Glucose Level 220 mg/dL 370 mg/dL Calcium Level 8.8 mg/dL 8.8 mg/dL Total Bilirubin 0.8 mg/dL 0.6 mg/dL Aspartate Amino Transf (AST/SGOT) 42 U/L 34 U/L Alanine Aminotransferase (ALT/SGPT) 42 U/L 41 U/L Alkaline Phosphatase 70 U/L 65 U/L Troponin I < 0.02 ng/mL Pro-B-Type Natriuretic Peptide 269 pg/mL Total Protein 7.1 g/dL 6.8 g/dL Albumin 3.0 g/dL 2.7 g/dL Globulin 4.1 4.1 Albumin/Globulin Ratio 0.731 0.658 SARS-CoV-2 Antigen (Rapid) POSITIVE Bedside Glucose 372 Test 10/20/20 07:52 10/20/20 11:43 Bedside Glucose 329 357 Current Medications Medications (Trade) Dose Ordered Sig/Velasquez Route PRN Reason Start Time Stop Time Status Last Admin Dose Admin Albuterol/ Ipratropium (Duo 0.5-3(2.5) Mg/3 ml) 3 ml STK-MED ONCE IH 10/19/20 20:16 10/19/20 20:16 DC Albuterol/ Ipratropium (Duo 0.5-3(2.5) Mg/3 ml) 3 ml STAT STAT IH 10/19/20 20:14 10/19/20 20:18 DC 10/19/20 20:14 Methylprednisolone Sodium Succinate (Solu-Medrol) 125 mg STAT STAT IV 10/19/20 20:14 10/19/20 20:18 DC 10/19/20 20:27 Methylprednisolone Sodium Succinate (Solu-Medrol) 125 mg STK-MED ONCE .ROUTE 10/19/20 20:23 10/19/20 20:24 DC Azithromycin 500 mg/Sodium Chloride 250 ml @ 175 mls/hr Q24HRS IV 10/19/20 21:30 10/19/20 21:21 DC Levofloxacin/ Dextrose 150 ml @ 100 mls/hr Q24HRS STAT IV 10/19/20 21:01 10/19/20 22:30 DC 10/19/20 21:06 Levofloxacin/ Dextrose 150 ml @ ud STK-MED ONCE IV 10/19/20 21:07 10/19/20 21:07 DC Levofloxacin (Levaquin) 500 mg DAILY PO 10/20/20 09:00 11/19/20 08:59 10/20/20 08:07 Albuterol/ Ipratropium (Duo 0.5-3(2.5) Mg/3 ml) 3 ml RTQ4 IH 10/20/20 01:00 10/19/20 22:15 DC Remdesivir 200 mg/ Sodium Chloride 140 ml @ 120.69 mls/ hr OT STAT IV 10/19/20 21:53 10/20/20 08:28 DC Remdesivir 100 mg/ Sodium Chloride 120 ml @ 111.111 mls/hr Q24HRS IV 10/21/20 09:00 11/20/20 08:59 Albuterol/ Ipratropium (Duo 0.5-3(2.5) Mg/3 ml) 3 ml RTQ4 IH 10/20/20 01:00 11/19/20 00:59 Insulin Human Lispro (Humalog) 0-140 0 Units 141-200... ACHS SQ 10/20/20 07:30 11/19/20 07:29 10/20/20 11:50 Duloxetine HCl (Cymbalta) 20 mg BID PO 10/20/20 09:00 11/19/20 08:59 10/20/20 08:07 Gabapentin (Neurontin) 300 mg HS PO 10/20/20 21:00 11/19/20 20:59 Losartan Potassium (Cozaar) 50 mg DAILY PO 10/20/20 09:00 11/19/20 08:59 10/20/20 08:07 Triamterene/HCTZ (Maxzide 37.5 Mg-25 Mg Tablet) 1 tab DAILY PO 10/20/20 09:00 11/19/20 08:59 10/20/20 08:57 Potassium Chloride (Potassium Chloride) 40 meq DAILY PO 10/20/20 09:00 11/19/20 08:59 10/20/20 08:07 Remdesivir 200 mg/ Sodium Chloride 140 ml @ 100 mls/hr OT ONCE IV 10/20/20 09:00 10/20/20 10:23 DC 10/20/20 08:56 Sodium Chloride 250 ml @ ud STK-MED ONCE IV 10/20/20 08:58 10/20/20 08:58 DC Course Sepsis Screening Results: Posi: POSITIVE Sepsis Qualifier/Stage: SEPSIS RISK Duration or Total Time Spent w: 35m Vitals & review Data Vital Sign - Last 24 Hours 10/20/20 10/20/20 10/20/20 10/20/20 07:57 08:07 08:57 10:34 Temp 98.0 Pulse 71 Resp 16 B/P (MAP) 114/66 (82) 114/66 114/66 Pulse Ox 91 O2 Delivery Nasal Canula Nasal Cannula O2 Flow Rate 3.00 3.00 10/20/20 12:14 Temp 98.0 Pulse 68 Resp 20 B/P (MAP) 121/68 (85) Pulse Ox 91 O2 Delivery Nasal Canula O2 Flow Rate 4.00 Intake and Output 10/20/20 07:00 Intake Total 500 ml Output Total 900 ml Balance -400 ml Laboratory Tests Test 10/19/20 20:03 10/19/20 21:10 10/20/20 04:42 10/20/20 05:09 White Blood Count 10.0 10^3/uL 6.9 10^3/uL Red Blood Count 4.68 10^6/uL 4.44 10^6/uL Hemoglobin 13.7 g/dL 13.2 g/dL Hematocrit 40.4 % 38.9 % Mean Corpuscular Volume 86.3 fL 87.6 fL Mean Corpuscular Hemoglobin 29.3 pg 29.7 pg Mean Corpuscular Hemoglobin Concent 33.9 g/dL 33.9 g/dL Red Cell Distribution Width 13.1 % 13.1 % Platelet Count 276 10^3/uL 258 10^3/uL Mean Platelet Volume 10.0 fL 10.3 fL Neutrophils (%) (Auto) 74.2 % 82.1 % Lymphocytes (%) (Auto) 15.8 % 13.0 % Monocytes (%) (Auto) 8.1 % 2.9 % Neutrophils # (Auto) 7.5 10^3/uL 5.6 10^3/uL Lymphocytes # (Auto) 1.58 10^3/uL1 0.89 10^3/uL1 Monocytes # (Auto) 0.8 10^3/uL 0.2 10^3/uL Absolute Immature Granulocyte (auto 0.14 10^3 u/L 0.12 10^3 u/L Absolute Eosinophils (auto) 0.0 10^3/uL 0.0 10^3/uL Immature Granulocytes % 1.40 % 1.70 % Eosinophils % 0.2 % 0.0 % Basophils % 0.3 % 0.3 % Basophils # 0.0 10^3/uL 0.0 10^3/uL D-Dimer 0.63 mg/L Sodium Level 137 mmol/L 137 mmol/L Potassium Level 2.9 mmol/L 3.6 mmol/L Chloride Level 98.0 mmol/L 99.0 mmol/L Carbon Dioxide Level 26.5 mmol/L 27.4 mmol/L Anion Gap 15.4 14.2 Blood Urea Nitrogen 12 mg/dL 14 mg/dL Creatinine 0.95 mg/dL 0.91 mg/dL Estimated GFR () 70.8 74.4 Est GFR (CKD-EPI)(Non-Afr Mexican) 58.5 61.5 BUN/Creatinine Ratio 12.0 15.0 Glucose Level 220 mg/dL 370 mg/dL Calcium Level 8.8 mg/dL 8.8 mg/dL Total Bilirubin 0.8 mg/dL 0.6 mg/dL Aspartate Amino Transf (AST/SGOT) 42 U/L 34 U/L Alanine Aminotransferase (ALT/SGPT) 42 U/L 41 U/L Alkaline Phosphatase 70 U/L 65 U/L Troponin I < 0.02 ng/mL Pro-B-Type Natriuretic Peptide 269 pg/mL Total Protein 7.1 g/dL 6.8 g/dL Albumin 3.0 g/dL 2.7 g/dL Globulin 4.1 4.1 Albumin/Globulin Ratio 0.731 0.658 SARS-CoV-2 Antigen (Rapid) POSITIVE Bedside Glucose 372 Test 10/20/20 07:52 10/20/20 11:43 Bedside Glucose 329 357 Current Medications Medications (Trade) Dose Ordered Sig/Velasquez PRN Reason Start Time Stop Time Status Last Admin Albuterol/ Ipratropium (Duo 0.5-3(2.5) Mg/3 ml) 3 ml RTQ4 10/20/20 01:00 11/19/20 00:59 Duloxetine HCl (Cymbalta) 20 mg BID 10/20/20 09:00 11/19/20 08:59 10/20/20 08:07 Gabapentin (Neurontin) 300 mg HS 10/20/20 21:00 11/19/20 20:59 Insulin Human Lispro (Humalog) 0-140 0 Units 141-200... ACHS 10/20/20 07:30 11/19/20 07:29 10/20/20 11:50 Levofloxacin (Levaquin) 500 mg DAILY 10/20/20 09:00 11/19/20 08:59 10/20/20 08:07 Losartan Potassium (Cozaar) 50 mg DAILY 10/20/20 09:00 11/19/20 08:59 10/20/20 08:07 Potassium Chloride (Potassium Chloride) 40 meq DAILY 10/20/20 09:00 11/19/20 08:59 10/20/20 08:07 Remdesivir 100 mg/ Sodium Chloride 120 ml @ 111.111 mls/hr Q24HRS 10/21/20 09:00 11/20/20 08:59 Triamterene/HCTZ (Maxzide 37.5 Mg-25 Mg Tablet) 1 tab DAILY 10/20/20 09:00 11/19/20 08:59 10/20/20 08:57 LEVEL 1 SEPSIS INFECTION CRITE: ABX Therapy, Cough/Shortness of Breath, Flu- Pneumonia LEVEL 2-SIRS (LIST ALL THAT AP: [id number] Cardiovascular Evidence: Not Assessed or None Hematologic Evidence: None/Not assessed Hepatic Evidence: None/Not assessed Metabolic Evidence: None/Not assessed Neurological Evidence: None/Not assessed Respiratory Evidence: Need for O2 to keep>90% Renal Evidence: None/Not assessed O2 Sat by Pulse Oximetry: 92 Oxygen Flow Rate: 1.00 Assessment/Plan Assessment/Plan Assessment/Plan 70-year-old female with diabetes type 2, asthma, hypertension, hyperlipidemia obesity with BMI of 41 who admitted to hospital for Covid viral pneumonia Patient had x-ray showing multifocal pneumonia Patient test positive for Covid screening Admitted to [facility] COVID-19 Started patient on steroids Start patient on remdesivir Breathing treatments as needed Patient does need supplemental O2 1 L nasal cannula patient does not need oxygen normally at home Patient received 1 unit of convalescent plasma Asthma Continue with breathing treatments and steroids Diabetes Sliding scale insulin Hypertension hyperlipidemia Restart home medications DVT prophylaxis Lovenox Disposition: We will try to wean patient down to 1 L or 0 L room air and see if patient is able to keep saturations up. Patient unable to keep saturations up left at discharge with home oxygen. We will plan likely discharge either today or tomorrow with steroids outpatient and follow-up with PCP. Plan 6 ARASH SENIOR MD Oct 22, 2020 11:45
[2020-10-22] MEDS: ULTRAM PO PRN (13:09)
[2020-10-22] MEDS: REMDESIVIR (EUA) 100 MG in NS 100ML 100 ML IV SCH (15:03)
[2020-10-22 15:59] VITALS: BP 144/66
[2020-10-22] MEDS: LOVENOX SQ SCH (21:09)
[2020-10-22] MEDS: NEURONTIN PO SCH (21:09)
[2020-10-22 21:32] VITALS: BP 130/72
[2020-10-23 00:09] VITALS: BP 120/66
[2020-10-23 04:01] VITALS: BP 135/75
[2020-10-23 05:30] LABS: BASOPHIL % 0.2 % (0.0-0.2); EOSINOPHIL # 0.1 10^3/uL (0.0-0.2); EOSINOPHIL % 0.5 % (0.0-5.0); LYMPHOCYTES # 2.37 10^3/uL1 (1.0-4.8); LYMPHOCYTES % 24.9 % (24.0-44.0); MEAN CORP HGB 29.8 pg (26-34); MONOCYTES # 0.8 10^3/uL (0.3-0.8); MONOCYTES % 8.7 % (5.0-12.0); NEUTROPHIL # 5.9 10^3/uL (1.8-7.7); NEUTROPHILS % 61.6 % (41.0-85.0); PLATELET COUNT 341 10^3/uL (150-400); RED CELL DISTRIBUTION WIDTH 13.2 % (11.5-14.5)
[2020-10-23 05:43] LABS: CALCIUM 8.9 mg/dL (8.4-10.5); CARBON DIOXIDE 27.3 mmol/L (20.0-32)
[2020-10-23 08:30] VITALS: BP 121/67
[2020-10-23] MEDS: COZAAR PO SCH (08:44)
[2020-10-23] MEDS: CYMBALTA PO SCH (08:44)
[2020-10-23] MEDS: LEVAQUIN PO SCH (08:45)
[2020-10-23] MEDS: POTASSIUM CHLORIDE PO SCH (08:45)
[2020-10-23] MEDS: MAXZIDE 37.5 MG-25 MG TABLET PO SCH (08:45)
[2020-10-23] MEDS: DEXAMETHASONE 10 MG/ML VIAL IV SCH (08:45)
[2020-10-23] MEDS: HUMALOG SQ SCH ×2 (08:50→11:30)
[2020-10-23] MEDS: ULTRAM PO PRN (08:56)
[2020-10-23] MEDS ORDERED: PRED50TA PO (10:11)
--- NOTE | 2020-10-23 10:14 | PRM.DC ---
DC Summary Final Dx: Problems Medical Problems: (1) Asthma Status: Acute ICD Codes: J45.909 - Unspecified asthma, uncomplicated SNOMED: 288827819, [id number] Responsible Provider: Bryce Kirby MD- ER Problem Recorded: Oct 19, 2020 21:18 Last Edited By: Bryce Kirby Md- Er on Oct 19, 2020 21:19 (2) CAP (community acquired pneumonia) Status: Acute ICD Codes: J18.9 - Pneumonia, unspecified organism SNOMED: [id number] Responsible Provider: Bryce Kirby MD- ER Problem Recorded: Oct 19, 2020 21:18 Last Edited By: Bryce Kirby Md- Er on Oct 19, 2020 21:19 (3) Diabetes Status: Acute ICD Codes: E11.9 - Type 2 diabetes mellitus without complications SNOMED: [id number] Responsible Provider: Bryce Kirby MD- ER Problem Recorded: Oct 19, 2020 21:18 Last Edited By: Lor Randolph Er on Oct 19, 2020 21:19 (4) Hypoxia Status: Acute ICD Codes: R09.02 - Hypoxemia SNOMED: [id number] Responsible Provider: Bryce Kirby MD- ER Problem Recorded: Oct 19, 2020 21:18 Last Edited By: Lor Randolph on Oct 19, 2020 21:19 (5) Shoulder pain, left Status: Acute ICD Codes: M25.512 - Pain in left shoulder SNOMED: [id number], [id number] Responsible Provider: Bryce Kirby MD- ER Problem Recorded: Oct 19, 2020 21:18 Last Edited By: Lor Randolph on Oct 19, 2020 21:19 HPI/Course 70-year-old female with past medical history for asthma, diabetes, hypertension, hyperlipidemia who presented to the ER with shoulder pain. Patient does note some shortness of breath, start of a cough. Believed it to be allergies. Patient denies any fevers, loss of taste or smell. Patient was at a family gathering on the day of admission was with family without masks. Past medical history: Diabetes, asthma, hypertension, hyperlipidemia Surgical history: Noncontributory Family history: Diabetes Allergies sulfa: Social history: Patient denies any history of tobacco, alcohol or drug use Lab/Thomas/BBK/Rad Laboratory Tests Test 3/16/21 20:03 10/19/20 21:10 10/20/20 04:42 10/20/20 05:09 White Blood Count 10.0 10^3/uL 6.9 10^3/uL Red Blood Count 4.68 10^6/uL 4.44 10^6/uL Hemoglobin 13.7 g/dL 13.2 g/dL Hematocrit 40.4 % 38.9 % Mean Corpuscular Volume 86.3 fL 87.6 fL Mean Corpuscular Hemoglobin 29.3 pg 29.7 pg Mean Corpuscular Hemoglobin Concent 33.9 g/dL 33.9 g/dL Red Cell Distribution Width 13.1 % 13.1 % Platelet Count 276 10^3/uL 258 10^3/uL Mean Platelet Volume 10.0 fL 10.3 fL Neutrophils (%) (Auto) 74.2 % 82.1 % Lymphocytes (%) (Auto) 15.8 % 13.0 % Monocytes (%) (Auto) 8.1 % 2.9 % Neutrophils # (Auto) 7.5 10^3/uL 5.6 10^3/uL Lymphocytes # (Auto) 1.58 10^3/uL1 0.89 10^3/uL1 Monocytes # (Auto) 0.8 10^3/uL 0.2 10^3/uL Absolute Immature Granulocyte (auto 0.14 10^3 u/L 0.12 10^3 u/L Absolute Eosinophils (auto) 0.0 10^3/uL 0.0 10^3/uL Immature Granulocytes % 1.40 % 1.70 % Eosinophils % 0.2 % 0.0 % Basophils % 0.3 % 0.3 % Basophils # 0.0 10^3/uL 0.0 10^3/uL D-Dimer 0.63 mg/L Sodium Level 137 mmol/L 137 mmol/L Potassium Level 2.9 mmol/L 3.6 mmol/L Chloride Level 98.0 mmol/L 99.0 mmol/L Carbon Dioxide Level 26.5 mmol/L 27.4 mmol/L Anion Gap 15.4 14.2 Blood Urea Nitrogen 12 mg/dL 14 mg/dL Creatinine 0.95 mg/dL 0.91 mg/dL Estimated GFR () 70.8 74.4 Est GFR (CKD-EPI)(Non-Afr Citizen Of [place]) 58.5 61.5 BUN/Creatinine Ratio 12.0 15.0 Glucose Level 220 mg/dL 370 mg/dL Calcium Level 8.8 mg/dL 8.8 mg/dL Total Bilirubin 0.8 mg/dL 0.6 mg/dL Aspartate Amino Transf (AST/SGOT) 42 U/L 34 U/L Alanine Aminotransferase (ALT/SGPT) 42 U/L 41 U/L Alkaline Phosphatase 70 U/L 65 U/L Troponin I < 0.02 ng/mL Pro-B-Type Natriuretic Peptide 269 pg/mL Total Protein 7.1 g/dL 6.8 g/dL Albumin 3.0 g/dL 2.7 g/dL Globulin 4.1 4.1 Albumin/Globulin Ratio 0.731 0.658 SARS-CoV-2 Antigen (Rapid) POSITIVE Bedside Glucose 372 Test 10/20/20 07:52 10/20/20 11:43 Bedside Glucose 329 357 Current Medications Medications (Trade) Dose Ordered Sig/Velasquez Route PRN Reason Start Time Stop Time Status Last Admin Dose Admin Albuterol/ Ipratropium (Duo 0.5-3(2.5) Mg/3 ml) 3 ml STK-MED ONCE IH 10/19/20 20:16 10/19/20 20:16 DC Albuterol/ Ipratropium (Duo 0.5-3(2.5) Mg/3 ml) 3 ml STAT STAT IH 10/19/20 20:14 10/19/20 20:18 DC 10/19/20 20:14 Methylprednisolone Sodium Succinate (Solu-Medrol) 125 mg STAT STAT IV 10/19/20 20:14 10/19/20 20:18 DC 10/19/20 20:27 Methylprednisolone Sodium Succinate (Solu-Medrol) 125 mg STK-MED ONCE .ROUTE 10/19/20 20:23 10/19/20 20:24 DC Azithromycin 500 mg/Sodium Chloride 250 ml @ 175 mls/hr Q24HRS IV 10/19/20 21:30 10/19/20 21:21 DC Levofloxacin/ Dextrose 150 ml @ 100 mls/hr Q24HRS STAT IV 10/19/20 21:01 10/19/20 22:30 DC 10/19/20 21:06 Levofloxacin/ Dextrose 150 ml @ ud STK-MED ONCE IV 10/19/20 21:07 10/19/20 21:07 DC Levofloxacin (Levaquin) 500 mg DAILY PO 10/20/20 09:00 11/19/20 08:59 10/20/20 08:07 Albuterol/ Ipratropium (Duo 0.5-3(2.5) Mg/3 ml) 3 ml RTQ4 IH 10/20/20 01:00 10/19/20 22:15 DC Remdesivir 200 mg/ Sodium Chloride 140 ml @ 120.69 mls/ hr OT STAT IV 10/19/20 21:53 10/20/20 08:28 DC Remdesivir 100 mg/ Sodium Chloride 120 ml @ 111.111 mls/hr Q24HRS IV 10/21/20 09:00 11/20/20 08:59 Albuterol/ Ipratropium (Duo 0.5-3(2.5) Mg/3 ml) 3 ml RTQ4 IH 10/20/20 01:00 11/19/20 00:59 Insulin Human Lispro (Humalog) 0-140 0 Units 141-200... ACHS SQ 10/20/20 07:30 11/19/20 07:29 10/20/20 11:50 Duloxetine HCl (Cymbalta) 20 mg BID PO 10/20/20 09:00 11/19/20 08:59 10/20/20 08:07 Gabapentin (Neurontin) 300 mg HS PO 10/20/20 21:00 11/19/20 20:59 Losartan Potassium (Cozaar) 50 mg DAILY PO 10/20/20 09:00 11/19/20 08:59 10/20/20 08:07 Triamterene/HCTZ (Maxzide 37.5 Mg-25 Mg Tablet) 1 tab DAILY PO 10/20/20 09:00 11/19/20 08:59 10/20/20 08:57 Potassium Chloride (Potassium Chloride) 40 meq DAILY PO 10/20/20 09:00 11/19/20 08:59 10/20/20 08:07 Remdesivir 200 mg/ Sodium Chloride 140 ml @ 100 mls/hr OT ONCE IV 10/20/20 09:00 10/20/20 10:23 DC 10/20/20 08:56 Sodium Chloride 250 ml @ ud STK-MED ONCE IV 10/20/20 08:58 10/20/20 08:58 DC Vitals/I&O VS - Last 72 Hours, by Label Date Time Temp Pulse Resp B/P (MAP) Pulse Ox O2 Delivery O2 Flow Rate FiO2 10/23/20 09:36 89 18 93 Room Air 10/23/20 08:45 135/75 10/23/20 08:44 135/75 10/23/20 08:30 97.9 80 19 121/67 (85) 91 Nasal Canula 1.00 10/23/20 08:13 Nasal Cannula 1.00 10/23/20 04:01 97.5 65 18 135/75 (95) 97 Room Air 10/23/20 00:09 97.9 80 18 120/66 (84) 92 Room Air 10/22/20 22:02 85 18 91 Room Air 10/22/20 22:01 Room Air 10/22/20 21:32 98.1 85 18 130/72 (91) 91 Room Air 10/22/20 15:59 98.3 85 18 144/66 (92) 94 Nasal Canula 1.00 10/22/20 11:01 97.4 66 16 123/66 (85) 92 Nasal Canula 1.00 10/22/20 08:23 89 18 90 Nasal Cannula 1.00 10/22/20 08:22 89 16 90 10/22/20 08:21 131/72 10/22/20 08:21 131/72 10/22/20 08:07 Nasal Cannula 1.00 10/22/20 07:15 98.0 77 16 131/72 (91) 96 Nasal Canula 1.00 10/22/20 04:27 98.0 67 18 132/67 (88) 96 Nasal Canula 2.00 10/21/20 23:39 98.2 63 20 131/67 (88) 97 Nasal Canula 2.00 10/21/20 21:40 Nasal Cannula 1.00 10/21/20 20:57 97.4 68 18 135/64 (87) 93 Nasal Canula 1.00 10/21/20 20:48 76 14 96 Nasal Cannula 2.00 28 10/21/20 16:21 97.8 77 18 134/66 (88) 96 Nasal Canula 1.00 10/21/20 12:04 97.7 65 16 120/62 (81) 94 Nasal Canula 2.00 10/21/20 09:08 Nasal Cannula 3.50 10/21/20 08:59 71 18 94 10/21/20 08:59 71 20 94 Nasal Cannula 2.00 28 10/21/20 08:25 129/65 10/21/20 08:25 129/65 10/21/20 07:11 97.7 68 16 129/65 (86) 96 Nasal Canula 3.50 10/21/20 04:40 98.0 60 20 120/72 (88) 95 Nasal Canula 3.00 10/21/20 01:21 63 19 97 Nasal Cannula 3.00 32 10/21/20 01:20 93 19 97 10/21/20 00:33 97.8 62 20 116/63 (80) 97 Nasal Canula 4.00 10/20/20 21:33 Nasal Cannula 3.00 10/20/20 20:27 67 19 94 10/20/20 20:27 67 19 94 Nasal Cannula 4.00 36 10/20/20 20:22 98.0 68 18 116/60 (78) 94 Nasal Canula 4.00 10/20/20 17:10 127/63 (84) 10/20/20 15:43 97.8 77 16 109/56 10/20/20 15:24 97.6 77 20 125/63 10/20/20 12:51 20 94 10/20/20 12:51 68 20 94 Nasal Cannula 4.00 36 10/20/20 12:48 68 20 94 10/20/20 12:14 98.0 68 20 121/68 (85) 91 Nasal Canula 4.00 10/20/20 10:34 Nasal Cannula 3.00 10/20/20 08:57 114/66 10/20/20 08:07 114/66 10/20/20 07:57 98.0 71 16 114/66 (82) 91 Nasal Canula 3.00 10/20/20 04:09 98.4 76 18 117/63 (81) 92 Nasal Canula 2.00 10/19/20 23:30 Nasal Cannula 2.00 10/19/20 23:15 98.0 74 18 122/63 (82) 95 Nasal Canula 2.00 10/19/20 22:00 98.0 80 16 124/80 (95) 95 Nasal Canula 3.00 10/19/20 21:00 79 18 119/76 (90) 94 Nasal Canula 3.00 10/19/20 20:24 83 18 91 10/19/20 20:20 82 18 92 10/19/20 20:12 98.2 83 18 129/84 (99) 79 Room Air 10/19/20 20:12 98.2 83 18 79 10/19/20 20:12 98.2 83 18 Scheduled Allopurinol (Allopurinol), 1 TAB PO DAILY, (Reported) Duloxetine Hcl (Cymbalta), 1 CAP PO BID, (Reported) Fluticasone/Salmeterol (Advair 100-50 Diskus), 1 PUFF IH BID, (Reported) Gabapentin (Neurontin), 1 CAP PO HS, (Reported) Losartan Potassium (Losartan Potassium), 1 TAB PO DAILY, (Reported) Prednisone (Prednisone), 50 MG PO DAILY24 Triamterene/Hydrochlorothiazid (Triamterene-Hctz 37.5-25 Mg Cp), 1 CAP PO AM, (Reported) Discontinued Medications Gabapentin (Gabapentin), 1 CAP PO TID, (Reported) Discontinued Reason: No Longer Taking Sepsis Reassessment @ DC Vital Sign - Last 24 Hours 10/20/20 10/20/20 10/20/20 10/20/20 07:57 08:07 08:57 10:34 Temp 98.0 Pulse 71 Resp 16 B/P (MAP) 114/66 (82) 114/66 114/66 Pulse Ox 91 O2 Delivery Nasal Canula Nasal Cannula O2 Flow Rate 3.00 3.00 10/20/20 12:14 Temp 98.0 Pulse 68 Resp 20 B/P (MAP) 121/68 (85) Pulse Ox 91 O2 Delivery Nasal Canula O2 Flow Rate 4.00 Intake and Output 10/20/20 07:00 Intake Total 500 ml Output Total 900 ml Balance -400 ml Laboratory Tests Test 10/19/20 20:03 10/19/20 21:10 10/20/20 04:42 10/20/20 05:09 White Blood Count 10.0 10^3/uL 6.9 10^3/uL Red Blood Count 4.68 10^6/uL 4.44 10^6/uL Hemoglobin 13.7 g/dL 13.2 g/dL Hematocrit 40.4 % 38.9 % Mean Corpuscular Volume 86.3 fL 87.6 fL Mean Corpuscular Hemoglobin 29.3 pg 29.7 pg Mean Corpuscular Hemoglobin Concent 33.9 g/dL 33.9 g/dL Red Cell Distribution Width 13.1 % 13.1 % Platelet Count 276 10^3/uL 258 10^3/uL Mean Platelet Volume 10.0 fL 10.3 fL Neutrophils (%) (Auto) 74.2 % 82.1 % Lymphocytes (%) (Auto) 15.8 % 13.0 % Monocytes (%) (Auto) 8.1 % 2.9 % Neutrophils # (Auto) 7.5 10^3/uL 5.6 10^3/uL Lymphocytes # (Auto) 1.58 10^3/uL1 0.89 10^3/uL1 Monocytes # (Auto) 0.8 10^3/uL 0.2 10^3/uL Absolute Immature Granulocyte (auto 0.14 10^3 u/L 0.12 10^3 u/L Absolute Eosinophils (auto) 0.0 10^3/uL 0.0 10^3/uL Immature Granulocytes % 1.40 % 1.70 % Eosinophils % 0.2 % 0.0 % Basophils % 0.3 % 0.3 % Basophils # 0.0 10^3/uL 0.0 10^3/uL D-Dimer 0.63 mg/L Sodium Level 137 mmol/L 137 mmol/L Potassium Level 2.9 mmol/L 3.6 mmol/L Chloride Level 98.0 mmol/L 99.0 mmol/L Carbon Dioxide Level 26.5 mmol/L 27.4 mmol/L Anion Gap 15.4 14.2 Blood Urea Nitrogen 12 mg/dL 14 mg/dL Creatinine 0.95 mg/dL 0.91 mg/dL Estimated GFR () 70.8 74.4 Est GFR (CKD-EPI)(Non-Afr Citizen Of [place]) 58.5 61.5 BUN/Creatinine Ratio 12.0 15.0 Glucose Level 220 mg/dL 370 mg/dL Calcium Level 8.8 mg/dL 8.8 mg/dL Total Bilirubin 0.8 mg/dL 0.6 mg/dL Aspartate Amino Transf (AST/SGOT) 42 U/L 34 U/L Alanine Aminotransferase (ALT/SGPT) 42 U/L 41 U/L Alkaline Phosphatase 70 U/L 65 U/L Troponin I < 0.02 ng/mL Pro-B-Type Natriuretic Peptide 269 pg/mL Total Protein 7.1 g/dL 6.8 g/dL Albumin 3.0 g/dL 2.7 g/dL Globulin 4.1 4.1 Albumin/Globulin Ratio 0.731 0.658 SARS-CoV-2 Antigen (Rapid) POSITIVE Bedside Glucose 372 Test 10/20/20 07:52 10/20/20 11:43 Bedside Glucose 329 357 Current Medications Medications (Trade) Dose Ordered Sig/Velasquez PRN Reason Start Time Stop Time Status Last Admin Albuterol/ Ipratropium (Duo 0.5-3(2.5) Mg/3 ml) 3 ml RTQ4 10/20/20 01:00 11/19/20 00:59 Duloxetine HCl (Cymbalta) 20 mg BID 10/20/20 09:00 11/19/20 08:59 10/20/20 08:07 Gabapentin (Neurontin) 300 mg HS 10/20/20 21:00 11/19/20 20:59 Insulin Human Lispro (Humalog) 0-140 0 Units 141-200... ACHS 10/20/20 07:30 11/19/20 07:29 10/20/20 11:50 Levofloxacin (Levaquin) 500 mg DAILY 10/20/20 09:00 11/19/20 08:59 10/20/20 08:07 Losartan Potassium (Cozaar) 50 mg DAILY 10/20/20 09:00 11/19/20 08:59 10/20/20 08:07 Potassium Chloride (Potassium Chloride) 40 meq DAILY 10/20/20 09:00 11/19/20 08:59 10/20/20 08:07 Remdesivir 100 mg/ Sodium Chloride 120 ml @ 111.111 mls/hr Q24HRS 10/21/20 09:00 11/20/20 08:59 Triamterene/HCTZ (Maxzide 37.5 Mg-25 Mg Tablet) 1 tab DAILY 10/20/20 09:00 11/19/20 08:59 10/20/20 08:57 Condition/Impression Review of Systems Constitutional: No: Fever, Chills Respiratory: Cough, Dry, Shortness of breath; No: Wheezing Cardiovascular: No: Chest Pain, Palpitations Gastrointestinal: No: Nausea, Vomiting Genitourinary: No Dysuria, No Frequency Musculoskeletal: shoulder pain Skin: No: Rash, Lesions Neurological: No: Weakness, Numbness Objective General: Alert, Oriented X3, Cooperative, No acute distress HEENT: Atraumatic, PERRLA, EOMI Lungs: Clear to auscultation, Normal air movement, Other (NO wheezing noted) Heart: Regular rate, Normal S1, Normal S2, No murmurs Abdomen: Normal bowel sounds, Soft, No tenderness Extremities: No clubbing, No cyanosis Neuro: Normal gait, Normal speech Psych/Mental Status: Mental status NL, Mood NL Discharge Plan Patient admitted for COVID-19 viral pneumonia Treated with remdesivir, convalescent plasma, steroids. Patient received 1 unit convalescent plasma. Patient was placed on supplemental oxygen highest was 4 L able to wean down to 1 L on discharge. Patient satting above 90% on supplemental oxygen. Patient sat down to 86% on room air without 1 L of oxygen. Patient stable has supplemental oxygen at home already arrived. Patient discharged home with supplemental oxygen and another weeks worth of steroids pre dnisone 50 mg daily. Patient to follow-up with PCP. Also recommend in 2 to 3 weeks patient to get the vaccine if qualified. Recommend also anyone in the family that is also qualified for vaccine to get the vaccine possible. Recommend also to quarantine in RV for another week until symptoms are gone. Prescription/RX: Active Scripts Active Prednisone 50 Mg Tablet 50 Mg PO DAILY24 7 Days Reported Allopurinol 300 Mg Tablet 1 Tab PO DAILY Neurontin (Gabapentin) 300 Mg Capsule 1 Cap PO HS Losartan Potassium 50 Mg Tablet 1 Tab PO DAILY Cymbalta (Duloxetine Hcl) 20 Mg Capsule. 1 Cap PO BID Advair 100-50 Diskus (Fluticasone/Salmeterol) 1 Each Disk.w.dev 1 Puff IH BID Triamterene-Hctz 37.5-25 Mg Cp (Triamterene/Hydrochlorothiazid) 1 Each Capsule 1 Cap PO AM ARASH SENIOR MD Oct 23, 2020 10:14
[2020-10-23 12:36] VITALS: BP 135/75
== END 2020-10-23 11:45 | disposition home or self-care (01) | DRG 177 ==
LOC: ER 19:38 → MS 21:19
PROVIDERS: ADMIT Family Medicine; ATTEND Family Medicine
PROC: XW033E5 Introduction of Remdesivir Anti-infective into Peripheral Vein, Percutaneous Approach, New Technology Group 5 (ICD-10-PCS; principal; 2020-10-19)
PROC: XW13325 Transfusion of Convalescent Plasma (Nonautologous) into Peripheral Vein, Percutaneous Approach, New Technology Group 5 (ICD-10-PCS; 2020-10-20)
DX: U07.1 COVID-19 (principal); J12.82 Pneumonia due to coronavirus disease 2019; Z68.41 Body mass index [BMI] 40.0-44.9, adult; R09.02 Hypoxemia; E11.9 Type 2 diabetes mellitus without complications; M25.512 Pain in left shoulder; E66.9 Obesity, unspecified; E78.5 Hyperlipidemia, unspecified; I10 Essential (primary) hypertension; J45.909 Unspecified asthma, uncomplicated; Z83.3 Family history of diabetes mellitus; Z90.710 Acquired absence of both cervix and uterus; Z88.2 Allergy status to sulfonamides; Z79.899 Other long term (current) drug therapy
CPT/HCPCS: 36415; 71045; 80053; 82948; 83880; 84484; 85025; 85379; 86900; 87426; 93005; 94640; 99285; G0378; J0456; J1100; J1650; J1956; J2930; J7050; J7620; P9017; J8499